=== PATIENT | male | born 1965 | race Caucasian/White ===

== ENCOUNTER 2017-08-18 10:37 | Emergency (ER) | payer OTHER, MEDICARE ==
[~2017-08-18 10:37] MED LIST: ALEVE220 M1 PO; AMBIEN10 MG PO; AMOXICILLIN-CL1 EACH PO; ANTIVERT25 MG PO; AUGMENTIN 500-500 MG PO; CLONIDINE HCL0.1 MG PO; CYCLOBENZAPRINE10 MG PO; DEPO-TESTO200 MG/1 M IM; DIAZEPAM10 MG PO; DIAZEPAM5 MG PO; FLUDROCORTISON0.1 MG PO; FLUTICASONE PRO16 GM NS; GARLIPURE600 MG PO; GEODON60 MG PO; GEODON80 MG NG; GRALISE600 MG PO; HYDROCODON-ACE1 EAC8 PO; IBUPROFEN800 MG PO; KLONOPIN2 MG PO; LYRICA150 MG PO; LYRICA75 MG PO; MELOXICAM15 MG PO; METHYLPHENIDATE20 MG PO; NORCO 10-325 T1 EACH PO; ONDANSETRON ODT8 MG PO; PERCOCET 5-3251 EACH PO; PROCHLORPERAZIN10 MG PO; PROMETHAZINE HC25 M1 PO; PROZAC40 MG PO; PYRIDIUM200 MG PO; SULFAMETHOXAZO1 EAC1 PO; TRANSDERM-SCOP1 EA TD
--- NOTE | 2017-08-18 12:58 | NUR ---
CODE WAS CALLED AND I WENT TO ED TO CHECK ON STATUS. WHILE IN ED, CLOSE FRIEND OF PT RECOGNIZED ME AND CALLED FOR ME. SHE WAS UPSET, AND WITH TEARS SHE REQUESTED I CALL HER BACTERIOLOGIST MEDICAL AND GIVE HIM NOTIFICATION OF PT'S SITUATION. PT TO CT, I CALLED HER BACTERIOLOGIST MEDICAL AND LET HER VISIT WITH HIM ON MY PHONE. STAFF ALSO DETERMINED THAT PT SHOULD BE TRANSFERRED. I GAVE PT'S FRIEND MAL A COPY OF OUR LIFE[employer]IGHT PACK LIST. SHE WILL BE FOLLOWING PT. WE HAD PRAYER TOGETHER, AND WILL BE AVAILABLE NEEDED
--- NOTE | 2017-08-18 13:57 | EKG ---
[facility] [address] [facility] [place], [place] [address] Signed Sinus tachycardia Biatrial enlargement Abnormal ECG No previous ECGs available Confirmed by JJ BUCKNER MD ([id number]) on 08/18/2017 1:57:01 PM Electronically Signed By: JJ BUCKNER MD 08/18/17 1357 PATIENT NAME: KACEY GARCIA Electrocardiogram DATE OF : 63 PHYSICIAN: JJ BUCKNER MD REPORT #: [id number] REPORT IS CONFIDENTIAL AND NOT TO BE RELEASED WITHOUT AUTHORIZATION
== END 2017-08-18 13:22 | disposition short-term general hospital (02) ==
LOC: ED 10:37
DX: S02.19XA Other fracture of base of skull, initial encounter for closed fracture (principal); S06.6X9A Traumatic subarachnoid hemorrhage with loss of consciousness of unspecified duration, initial encounter; S06.5X9A Traumatic subdural hemorrhage with loss of consciousness of unspecified duration, initial encounter; F17.200 Nicotine dependence, unspecified, uncomplicated; Z88.1 Allergy status to other antibiotic agents; Z88.8 Allergy status to other drugs, medicaments and biological substances; Z87.442 Personal history of urinary calculi; Z79.899 Other long term (current) drug therapy; V49.9XXA Car occupant (driver) (passenger) injured in unspecified traffic accident, initial encounter
CPT/HCPCS: 70450; 70496; 71045; 72125; 80053; 85025; 90471; 90715; 93005; 93010; 96361; 96374; 96375; 99285; G0480; J2405; J2550; J2765; J7030; Q9967

== ENCOUNTER 2018-11-22 11:37 | Emergency (ER) | payer MEDICARE, OTHER ==
[~2018-11-22] VITALS: Ht 172.7 cm; Wt 79.4 kg
--- OUTSIDE RECORDS SUMMARY | 2018-11-22 11:40 | XMS ---
PreManage Notification: KACEY GARCIA Security Stick Feeder Events No recent Security Events currently on file CRITERIA MET - [facility] CARE PROVIDERS [place] CARMEN [facility] Current PHONE: Unknown CHANI THEODORE Primary Care Current PHONE: Unknown Chani Theodore MD PHONE: Unknown [facility] Primary Care Current PHONE: Unknown RADHA CARMEN Primary Care 02/06/2013-Current PHONE: Unknown Igor has no Care Guidelines for this patient. E.DBertrand VISIT COUNT (12 MO.) 1 TRIP Basurto TOTAL 1 NOTE: Visits indicate total known visits. ED/UCC VISIT TRACKING (12 MO.) 11/22/2018 11:[address] [facility] [place] TYPE: Emergency COMPLAINT: - ABD PAIN INPATIENT VISIT TRACKING (12 MO.) No inpatient visits to display in this time frame [id number]
[2018-11-22] MEDS ORDERED: XANAX2 MG PO (12:02)
[2018-11-22] MEDS ORDERED: LATUDA60 MG PO (12:04)
[2018-11-22] MEDS ORDERED: GABAPENTIN300 MG PO (12:05)
[2018-11-22] MEDS ORDERED: NEURONTIN300 MG PO (12:05)
[2018-11-22] MEDS ORDERED: FAMOTIDINE20 MG PO (12:06)
[2018-11-22] MEDS ORDERED: SEROQUEL400 MG PO (12:07)
[2018-11-22] MEDS ORDERED: BUSPIRONE HCL15 MG PO (12:07)
[2018-11-22] MEDS ORDERED: CATAPRES0.2 MG PO (12:08)
[2018-11-22] MEDS ORDERED: CARAFATE1 GM PO (12:09)
[2018-11-22] MEDS ORDERED: FLUVOXAMINE MA100 MG PO (12:10)
== END 2018-11-22 15:05 | disposition home or self-care (01) ==
LOC: ED 11:37
DX: K59.00 Constipation, unspecified (principal); F17.200 Nicotine dependence, unspecified, uncomplicated; Z88.8 Allergy status to other drugs, medicaments and biological substances; Z88.1 Allergy status to other antibiotic agents; Z79.899 Other long term (current) drug therapy
CPT/HCPCS: 36415; 51798; 74177; 80053; 81001; 83690; 85025; 99284-25; J2405; J7030; Q9967

== ENCOUNTER 2019-01-17 09:16 | Inpatient (IN) | payer MEDICARE, OTHER ==
[~2019-01-17] VITALS: Ht 172.7 cm; Wt 85.5 kg
--- OUTSIDE RECORDS SUMMARY | ~2019-01-17 | XMS | Clinical Summary ---
Demographics + + + | Address | [address] | | | [place] [address] | + + + | Home Phone | | + + + | Preferred Language | Unknown | + + + | Marital Status | Single | + + + | Faith Affiliation | Unknown | + + + | Race | White | + + + | Ethnic Group | Not or | + + + Author + + + | Author | [facility] | + + + | Organization | [facility] | + + + | Address | Unknown | + + + | Phone | Unavailable | + + + Support + + +---------+ + | Name | Relationship | Address | Phone | + + +---------+ + | Marianne Cabrera | ECON | Unknown | | + + +---------+ + Care Team Providers + +------+ + | Care Bowling Ball Grader And Marker Name | Role | Phone | + +------+ + | Rafita Manning DO | PCP | | + +------+ + Source Comments TA[facility] is fully live on both [facility] and [facility] Allergies + + + + + + | Active Allergy | Reactions | Severity | Noted | Comments | | | | | Date | | + + + + + + | Gabapentin | Unknown | | 09/20/20 | | | | | | 16 | | + + + + + + | Azithromycin | Unknown | | 09/20/20 | | | | | | 16 | | + + + + + + Medications + + + +---------+------+------+-------+ | Medication | Sig | Dispensed | Refills | Star | End | Statu | | | | | | t | Date | s | | | | | | Date | | | + + + +---------+------+------+-------+ | zolpidem 10 mg | Take 10 mg by mouth | | 0 | | | Activ | | oral tablet | once daily at | | | | | e | | | bedtime as needed | | | | | | | | for sleep. | | | | | | + + + +---------+------+------+-------+ | clonazePAM 2 mg | Take 2 mg by mouth | | 0 | | | Activ | | oral tablet | three times daily. | | | | | e | + + + +---------+------+------+-------+ | cloNIDine HCl 0.2 | Take 0.2 mg by mouth | | 0 | | | Activ | | mg oral tablet | two times daily. | | | | | e | + + + +---------+------+------+-------+ | naproxen sodium | Take 220 mg by mouth | | 0 | | | Activ | | (ALEVE) 220 mg oral | as needed. | | | | | e | | capsule | | | | | | | + + + +---------+------+------+-------+ | ziprasidone 60 mg | Take 60 mg by mouth | | 0 | | | Activ | | oral capsule | two times daily with | | | | | e | | | meals. | | | | | | + + + +---------+------+------+-------+ | methylphenidate 20 | Take 20 mg by mouth | | 0 | | | Activ | | mg oral tablet | two times daily. | | | | | e | + + + +---------+------+------+-------+ | FLUoxetine 40 mg | Take 40 mg by mouth | | 0 | | | Activ | | oral capsule | once daily. | | | | | e | + + + +---------+------+------+-------+ | (No Medication | | | 0 | | | Activ | | Selected) | | | | | | e | + + + +---------+------+------+-------+ | testosterone | Inject into the | | 0 | | | Activ | | cypionate | muscle (IM) every | | | | | e | | (DEPO-TESTOSTERONE) | fourteen days. | | | | | | | 200 mg/mL | | | | | | | | intramuscular oil | | | | | | | + + + +---------+------+------+-------+ | testosterone | Inject into the | | 0 | | | Activ | | cypionate 200 mg/mL | muscle (IM) every | | | | | e | | intramuscular oil | fourteen days. | | | | | | + + + +---------+------+------+-------+ | testosterone | Inject 200 mg into | | 0 | | | Activ | | cypionate 200 mg/mL | the muscle (IM) | | | | | e | | intramuscular kit | every seven days. | | | | | | + + + +---------+------+------+-------+ | promethazine 25 mg | Take 25 mg by mouth | | 0 | | | Activ | | oral tablet | as needed for | | | | | e | | | nausea/vomiting. | | | | | | + + + +---------+------+------+-------+ | busPIRone 30 mg | Take 30 mg by mouth | | 0 | | | Activ | | oral tablet | two times daily. | | | | | e | + + + +---------+------+------+-------+ Active Problems Not on file Family History + + +------+ + | Medical History | Relation | Name | Comments | + + +------+ + | Additional Family | Brother | | migraine | | History | | | | + + +------+ + | Macular degeneration | Father | | | + + +------+ + | Additional Family | Mother | | migraine | | History | | | | + + +------+ + + +------+--------+ + | Relation | Name | Status | Comments | + +------+--------+ + | Brother | | | | + +------+--------+ + | Father | | | | + +------+--------+ + | Mother | | | | + +------+--------+ + Social History + +-------+ +--------+------+ | Tobacco Use | Types | Packs/Day | Years | Date | | | | | Used | | + +-------+ +--------+------+ | Current Some Day | | | | | | Smoker | | | | | + +-------+ +--------+------+ + +---+---+---+ | Smokeless Tobacco: | | | | | Never Used | | | | + +---+---+---+ + + | Comments: trying to quit, using e cigs, and nicotine gum and patch | + + + + +---------+ + | Alcohol Use | Drinks/Week | oz/Week | Comments | + + +---------+ + | No | 0 Standard drinks | 0.0 | | | | or equivalent | | | + + +---------+ + + + + | Sex Assigned at | Date Recorded | | | | + + + | Female | 08/12/2018 8:25 AM PDT | + + + + + + + | Job Start Date | Occupation | Industry | + + + + | Not on file | Not on file | Not on file | + + + + + + + + | Travel History | Travel Start | Travel End | + + + + + + | No recent travel history available. | + + Last Filed Vital Signs Not on file Plan of Treatment + + + + + | Health Maintenance | Due Date | Last Done | Comments | + + + + + | Pneumococcal | | | | | vaccination (1 of 1 | 1 | | | | - PPSV23) | | | | + + + + + | Influenza (Flu) | | | | | vaccination (#1) | 9 | | | + + + + + Results Not on filefrom Last 3 Months Insurance + +--------+ +--------+-------+---------+--------+ | Payer | Benefi | Subscriber | Effect | Phone | Address | Type | | | t Plan | ID | agnes | | | | | | / | | Dates | | | | | | Group | | | | | | + +--------+ +--------+-------+---------+--------+ | [employer] | [place] | xxxxxxxx | | | | Medica | | | [place] | | 015-Pr | | | id | | | [place] | | esent | | | | + +--------+ +--------+-------+---------+--------+ + +--------+ +--------+ + + | Guarantor Name | Accoun | Relation to | Date | Phone | Billing Address | | | t Type | Patient | of | | | | | | | | | | + +--------+ +--------+ + + | Sajan Bray | Person | Self | [birth year] | [address] | | | al/Fam | | 1966 | [phone] | [address] [place] | | | greg | | | 0 (Home) | [phone] | + +--------+ +--------+ + +"
--- OUTSIDE RECORDS SUMMARY | ~2019-01-17 | XMS | Encounter Summary ---
Demographics + + + | Address | [address] | | | [place] [address] | + + + | Home Phone | | + + + | Preferred Language | Unknown | + + + | Marital Status | Single | + + + | Christianity Affiliation | Unknown | + + + | Race | White | + + + | Ethnic Group | Not or | + + + Author + + + | Author | [facility] | + + + | Organization | [facility] | + + + | Address | Unknown | + + + | Phone | Unavailable | + + + Support + + +---------+ + | Name | Relationship | Address | Phone | + + +---------+ + | Marianne Cabrera | ECON | Unknown | | + + +---------+ + Care Team Providers + +------+ + | Care Inventory Taker Name | Role | Phone | + +------+ + | Rafita Manning DO | PCP | | + +------+ + Reason for Visit + + + | Reason | Comments | + + + | Lab Results | | + + + Encounter Details +--------+ + + + + | Date | Type | Department | Care Team | Description | +--------+ + + + + | 12/30/ | Telephone | [facility] | Anthony Peters, | Lab Results | | 2015 | | [place] | MD [address] | | | | | Neuro-Ophthalmology | [place], [place] | | | | | at [facility] [address] | [address] | | | | | [address] Mailcode: CH3G | [phone] | | | | | [facility] | | | | | | jonathan Rg, | | | | | | [facility] | | | | | | [place], [place] | | | | | | [address] | | | | | | [phone] | | | +--------+ + + + + Social History + +-------+ +--------+------+ | [...] | + + + | Female | | + + + + + [...] recent travel history available. | + + documented as of this encounter Plan of Treatment Not on filedocumented as of this encounter Visit Diagnoses Not on filedocumented in this encounter"
--- OUTSIDE RECORDS SUMMARY | ~2019-01-17 | XMS | Encounter Summary ---
Demographics + + + | Address | [address] | | | [place] [address] | + + + | Home Phone | | + + + | Preferred Language | Unknown | + + + | Marital Status | Single | + + + | Amish Affiliation | [phone] | + + + | Race | Unknown | + + + | Ethnic Group | Unknown | + + + Author + + + | Author | [facility] | | | and [place] | + + + | Organization | [facility] | | | and [place] | + + + | Address | Unknown | + + + | Phone | Unavailable | + + + Support + + +---------+ + | Name | Relationship | Address | Phone | + + +---------+ + | Marianne Cabrera | ECON | Unknown | | + + +---------+ + Care Team Providers + +------+ + | Care Clinical Material Handler Name | Role | Phone | + +------+ + | Katharine Hernandez | PCP | | | PA | | | + +------+ + Reason for Visit + + + | Reason | Comments | + + + | Patient Concerns | | + + + Encounter Details +--------+ + + + + | Date | Type | Department | Care Team | Description | +--------+ + + + + | 11/07/ | Telephone | [facility] | Lazaro Haynes MD | Patient Concerns | | 2019 | | [facility] | [address] | | | | | CLINIC [address] | [place] | | | | | [address] [place], | [address] | | | | | [place] [address] | | | | | | [phone] | | | +--------+ + + + + Social History + +-------+ +--------+------+ | Tobacco Use | Types | Packs/Day | Years | Date | | | | | Used | | + +-------+ +--------+------+ | Current Every Day | | 0.5 | | | | Smoker | | | | | + +-------+ +--------+------+ + +---+---+---+ | Smokeless Tobacco: | | | | | Former User | | | | + +---+---+---+ + + +---------+ + | Alcohol Use | Drinks/We | oz/Week | Comments | | | ek | | | + + +---------+ + | No | | | | + + +---------+ + + + + | Sex Assigned at | Date Recorded | | | | + + + | Not on file | | + + + + + [...] as of this encounter Plan of Treatment +--------+---------+ + + + | Date | Type | Specialty | Care Team | Description | +--------+---------+ + + + | 03/22/ | Office | Neurology | Geovanna, | | | 2019 | Visit | | [address] | | | [address] [place] [place], | | | | | | [place] [address] | | | | | | [phone] | | | | | | | | +--------+---------+ + + + | 05/29/ | Office | Neurology | Lazaro Haynes MD | | | 2020 | Visit | | [address] | | | | | | [place] | | | | | | [address] | | | | | | | | +--------+---------+ + + + documented as of this encounter Visit Diagnoses Not on filedocumented in this encounter"
--- OUTSIDE RECORDS SUMMARY | ~2019-01-17 | XMS | Clinical Summary ---
Demographics + + + | Address | [address] | | | [place] [address] | + + + | Home Phone | | + + + | Preferred Language | Unknown | + + + | Marital Status | Single | + + + | Methodist Affiliation | 1013 | + + + | Race | Unknown | + + + | Ethnic Group | Unknown | + + + Author + + + | Author | [facility] (Historical as of | | | 11-18-18) | + + + | Organization | [facility] (Historical as of | | | 11-18-18) | + + + | Address | Unknown | + + + | Phone | Unavailable | + + + Support + + +---------+ + | Name | Relationship | Address | Phone | + + +---------+ + | Marianne Cabrera | ECON | Unknown | | + + +---------+ + Care Team Providers + +------+ + | Care Camera Maker Name | Role | Phone | + +------+ + | Mohit Manning DO | PP | | + +------+ + Allergies + + + + + + | Active Allergy | Reactions | Severity | Noted | Comments | | | | | Date | | + + + + + + | Gabapentin | Other (See Comments) | Medium | 02/11/20 | | | | | | 16 | | + + + + + + | Lamotrigine | Rash | Medium | 12/12/19 | | | | | | 15 | | + + + + + + | Azithromycin | Rash | Medium | 12/12/19 | | | | | | 15 | | + + + + + + Current Medications + + +---------+---------+------+------+-------+ | Prescription | Sig. | Disp. | Refills | Star | End | Statu | | | | | | t | Date | s | | | | | | Date | | | + + +---------+---------+------+------+-------+ | cyclobenzaprine | Take 10 mg by mouth | | | | | Activ | | (FLEXERIL) 10 MG | 3 (three) times | | | | | e | | tablet | daily as needed for | | | | | | | | Muscle spasms. | | | | | | + + +---------+---------+------+------+-------+ | busPIRone (BUSPAR) | Take 1 tablet by | 90 | 0 | 06/1 | | Activ | | 10 MG | mouth 3 (three) | tablet | | 5/20 | | e | | tabletIndications: | times daily. | | | 18 | | | | Traumatic | | | | | | | | subarachnoid | | | | | | | | hemorrhage with loss | | | | | | | | of consciousness of | | | | | | | | unspecified | | | | | | | | duration, initial | | | | | | | | encounter (HCC) | | | | | | | + + +---------+---------+------+------+-------+ | clonazePAM | Take 1 tablet by | 60 | 0 | 06/1 | | Activ | | (KLONOPIN) 1 MG | mouth 2 (two) times | tablet | | 5/20 | | e | | tabletIndications: | daily. | | | 18 | | | | Traumatic | | | | | | | | subarachnoid | | | | | | | | hemorrhage with loss | | | | | | | | of consciousness of | | | | | | | | unspecified | | | | | | | | duration, initial | | | | | | | | encounter (HCC) | | | | | | | + + +---------+---------+------+------+-------+ | FLUoxetine | Take 3 capsules by | 90 | 0 | 06/1 | | Activ | | (PROZAC) 20 MG | mouth every morning. | capsule | | 5/20 | | e | | capsuleIndications: | | | | 18 | | | | Traumatic | | | | | | | | subarachnoid | | | | | | | | hemorrhage with loss | | | | | | | | of consciousness of | | | | | | | | unspecified | | | | | | | | duration, initial | | | | | | | | encounter ([facility]) | | | | | | | + + +---------+---------+------+------+-------+ | propranolol | Take 1 tablet by | 60 | 0 | 06/1 | | Activ | | (INDERAL) 10 MG | mouth 2 (two) times | tablet | | 5/20 | | e | | tabletIndications: | daily. | | | 18 | | | | Traumatic | | | | | | | | subarachnoid | | | | | | | | hemorrhage with loss | | | | | | | | of consciousness of | | | | | | | | unspecified | | | | | | | | duration, initial | | | | | | | | encounter ([facility]) | | | | | | | + + +---------+---------+------+------+-------+ | tamsulosin | Take 1 capsule by | 30 | 0 | 06/1 | | Activ | | (FLOMAX) 0.4 MG | mouth After dinner. | capsule | | 5/20 | | e | | capsule | | | | 18 | | | + + +---------+---------+------+------+-------+ | QUEtiapine | Take 1 tablet by | 30 | 0 | 09/02 | | Activ | | (SEROQUEL) 400 MG | mouth nightly for 30 | tablet | | 5/20 | | e | | tabletIndications: | days. | | | 18 | | | | Traumatic | | | | | | | | subarachnoid | | | | | | | | hemorrhage with loss | | | | | | | | of consciousness of | | | | | | | | unspecified | | | | | | | | duration, initial | | | | | | | | encounter (HCC) | | | | | | | + + +---------+---------+------+------+-------+ | oxyCODONE | Take 1 tablet by | 20 | 0 | 09/02 | | Activ | | (ROXICODONE) 5 MG | mouth every 8 | tablet | | 5/20 | | e | | immediate release | (eight) hours as | | | 18 | | | | tabletIndications: | needed for Pain | | | | | | | Traumatic | (-01/11). | | | | | | | subarachnoid | | | | | | | | hemorrhage with loss | | | | | | | | of consciousness of | | | | | | | | unspecified | | | | | | | | duration, initial | | | | | | | | encounter (HCC) | | | | | | | + + +---------+---------+------+------+-------+ Active Problems + + + | Problem | Noted Date | + + + | Severe protein-calorie malnutrition (HCC) | 09/13/2017 | + + + | Constipation | 09/05/2017 | + + + | Traumatic subarachnoid hemorrhage with loss of consciousness of | 08/18/2017 | | unspecified duration, initial encounter (HCC) | | + + + | Closed head injury | 08/18/2017 | + + + | Fatigue | 12/26/2014 | + + + | Essential hypertension | 12/14/2014 | + + + | Nausea | 12/12/2014 | + + + | Sciatica of left side | 12/12/2014 | + + + | Nephrolithiasis | 04/04/2013 | + + + | Bipolar disorder | | + + + Resolved Problems + + + + | Problem | Noted | Resolved | | | Date | Date | + + + + | Urinary tract infection associated with catheterization of | 08/29/19 | | | urinary tract (HCC) | 18 | 8 | + + + + | Loss of taste | 04/10/19 | | | | 16 | 6 | + + + + | BIRD (acute kidney injury) | 12/15/19 | | | | 15 | 6 | + + + + | Metabolic acidosis | 12/13/19 | | | | 15 | 8 | + + + + | Lightheaded | 12/13/19 | | | | 15 | 6 | + + + + | Headache(784.0) | 12/13/19 | | | | 15 | 7 | + + + + | Current smoker | 12/13/19 | | | | 15 | 6 | + + + + | Loss of weight | 12/13/19 | | | | 15 | 6 | + + + + Family History + + +------+ + | Medical History | Relation | Name | Comments | + + +------+ + | Stroke | Father | | AT 70 | + + +------+ + | Heart disease | Mother | | CABG AT 60 | + + +------+ + | Kidney disease | Neg Hx | | | + + +------+ + + +------+--------+ + | Relation | Name | Status | Comments | + +------+--------+ + | Father | | Alive | [place] in [place] | + +------+--------+ + | Mother | | Alive | in [place] | + +------+--------+ + Social History + + + +--------+------+ | Tobacco Use | Types | Packs/Day | Years | Date | | | | | Used | | + + + +--------+------+ | Current Every Day | Cigarettes | 1 | 10 | | | Smoker | | | | | + + + +--------+------+ + +------+---+---+ | Smokeless Tobacco: | Chew | | | | Current User | | | | + +------+---+---+ + + | Tobacco Cessation: Counseling Given: Yes | + + + + +---------+ + | Alcohol Use | Drinks/We | oz/Week | Comments | | | ek | | | + + +---------+ + | No | 0 | 0.0 | | | | Standard | | | | | drinks or | | | | | | | | | | equivalen | | | | | t | | | + + +---------+ + + + + | Sex Assigned at | Date Recorded | | | | + + + | Not on file | | + + + Last Filed Vital Signs + + + + | Vital Sign | Reading | Time Taken | + + + + | Blood Pressure | 116/69 | 09/16/2017 11:24 AM PDT | + + + + | Pulse | 109 | 09/16/2017 11:24 AM PDT | + + + + | Temperature | 36.9 C (98.4 F) | 09/16/2017 11:24 AM PDT | + + + + | Respiratory Rate | 16 | 09/16/2017 11:24 AM PDT | + + + + | Oxygen Saturation | 97% | 09/16/2017 11:24 AM PDT | + + + + | Inhaled Oxygen | - | - | | Concentration | | | + + + + | Weight | 52.4 kg (115 lb 9.6 | 09/06/2017 3:01 AM PDT | | | oz) | | + + + + | Height | 170.2 cm (5' 7") | 08/18/2017 2:08 PM PDT | + + + + | Body Mass Index | 18.11 | 09/06/2017 3:01 AM PDT | + + + + Plan of Treatment + + + + + | Health Maintenance | Due Date | Last Done | Comments | + + + + + | Vaccine: | | | | | Dtap/Tdap/Td (1 - | 4 | | | | Tdap) | | | | + + + + + | Vaccine: | | | | | Pneumococcal 19-64 | 4 | | | | (PPSV23 only) Medium | | | | | Risk (1 of 1 - | | | | | PPSV23) | | | | + + + + + | Colon Cancer | | | | | Screening | 5 | | | | (Colonoscopy) | | | | + + + + + | Vaccine: Zoster (1 | | | | | of 2) | 5 | | | + + + + + | Vaccine: Influenza | | | | | (#1) | 9 | | | + + + + + Results Not on filefrom Last 3 Months Insurance + +--------+ +--------+-------+ + | Payer | Benefi | Subscriber | Type | Phone | Address | | | t Plan | ID | | | | | | / | | | | | | | Group | | | | | + +--------+ +--------+-------+ + | [place] - | [id number] | Medica | | | | | MODA | | re | | | | | | | | | | | | | | | | | | | | | | | | | | | | | | | | | | | | | | | | [place] - | | | | | | | MODA | | | | | + +--------+ +--------+-------+ + | MEDICAID | [place] | [id number] | | | [address] | | | [address] | | | | [place], [place] | | | [place] | | | | [address] | | | DRAW PRESS OPERATOR | | | | | + +--------+ +--------+-------+ + | [place] - [employer]MIERCARE | [place]-FAM | | Medica | | | | FAMILY | GREG | | re | | | | | CARE | | | | | + +--------+ +--------+-------+ + + +--------+ +--------+ + + | Guarantor Name | Accoun | Relation to | Date | Phone | Billing Address | | | t Type | Patient | of | | | | | | | | | | + +--------+ +--------+ + + | SAJAN GARCIA | Person | Self [birth year] | Home: | [address] | | | al/Fam | | 1966 | [phone] | [address] [place], | | | greg | | | [address] | [place] [address] | + +--------+ +--------+ + + | SAJAN GARCIA | Worker | Self | [birth year] | Home: | [address] | | | s Comp | | 1966 | [phone] | [address] [place], | | | | | | [address] | [place] [address] | + +--------+ +--------+ + +
--- OUTSIDE RECORDS SUMMARY | ~2019-01-17 | XMS | Encounter Summary ---
Demographics + + + | Address | [address] | | | [place] [address] | + + + | Home Phone | | + + + | Preferred Language | Unknown | + + + | Marital Status | Single | + + + | Congregation Affiliation | 1013 | + + + | Race | Unknown | + + + | Ethnic Group | Unknown | + + + Author + + + | Author | [facility] | | | and [place] | + + + | Organization | [facility] | | | [...] Team Providers + +------+ + | Care Bar Pilot Name | Role | Phone | + +------+ + | Katharine Hernandez | PCP | | | PA | | | + +------+ + Encounter Details +--------+ + + + + | Date | Type | Department | Care Team | Description | +--------+ + + + + | 11/06/ | Orders Only | [facility] | Provider, | | | 2018 | | [facility] | Historical, MD [address] | | | | | [address] | [place] [address]. | | | | | [place], [place] | [place] [address] | | | | | [address] | | | | | | [phone] | | | +--------+ + + + [...] | Neurology | Geovanna, | | | 2018 | Visit | | [address] MAR[address] | | | | | [address] [place], | | | | | | [place] [address] | | | | | | [phone] | | | | | | | | +--------+---------+ + + + | 05/29/ | Office | Neurology | Lazaro Haynes MD | | | 2019 | Visit | | [address] | | | | | | [place] | | | | | | [phone] | | | | | | | | +--------+---------+ + + + documented as of this encounter Visit Diagnoses Not on filedocumented in this encounter"
--- OUTSIDE RECORDS SUMMARY | ~2019-01-17 | XMS | Clinical Summary ---
Demographics + + + | Address | [address] | | | [place] [address] | + + + | Home Phone | | + + + | Preferred Language | Unknown | + + + | Marital Status | Single | + + + | Islam Affiliation | 1013 | + + + | Race | Unknown | + + + | Ethnic Group | Unknown | + + + Author + + + | Author | [facility] [employer] (Historical as of | | | 11-18-18) | + + + | Organization | [facility] [employer] (Historical as of | | | 11-18-18) [...] Team Providers + +------+ + | Care Quill Cleaning Machine Operator Name | Role | Phone | + [...] | | | | | | encounter ([facility]) | | | | | | | [...] | | | | | | encounter ([facility]) | | | | | | | [...] | Mother | | Alive | in [place] | + +------+--------+ + Social History + [...] [place] - MODA | [place] - | [id number] | Medica | | | | | [...] +--------+-------+ + | MEDICAID | [employer] | [id number] | | | [address] | | | N | | | | [place], [place] | | | [place] | | | | [address] | | | DIRECTORY COMPILER | | | | | + +--------+ [...] greg | | | [address] | [place] [address] | + +--------+ +--------+ + + | SAJAN GARCIA | Worker | Self | [birth year] | Home: | [address] | | | s Comp | | 1966 | [phone] | [address] [place], | | | | | | [address] | [place] [address] | + +--------+ +--------+ + +
--- OUTSIDE RECORDS SUMMARY | ~2019-01-17 | XMS | Encounter Summary ---
Demographics + + + | Address | [address] | | | [place] [address] | + + + | Home Phone | | + + + | Preferred Language | Unknown | + + + | Marital Status | Single | + + + | Evangelical Affiliation | Unknown | + + + | Race | White | + + + | Ethnic Group | Not or | + + + Author + + + | Author | [facility] | + + + | Organization | [facility] | + + + | Address | Unknown | + + + | Phone | Unavailable | + + + Support + + +---------+ + | Name | Relationship | Address | Phone | + + +---------+ + | Marianne Cabrera | ECON | Unknown | | + + +---------+ + Care Team Providers + +------+ + | Care Show Girl Name | Role | Phone | + +------+ + | Rafita Manning DO | PCP | | + +------+ + Encounter Details +--------+------+ + + + | Date | Type | Department | Care Team | Description | +--------+------+ + + + | 12/21/ | Lab | Laboratory at [facility] | | [facility] | | 2016 | | [address] | | | | | | [place], [place] | | | | | | [address] | | | | | | [phone] | | | +--------+------+ + + + Social History + +-------+ +--------+------+ | Tobacco Use | Types | Packs/Day | Years | Date | | | | | Used | | + +-------+ +--------+------+ | Current Some Day | | | | | | Smoker | | | | | + +-------+ +--------+------+ + + | Comments: trying to quit, using e cigs, and nicotine gum and patch | + + + + +---------+ + | Alcohol Use | Drinks/Week | oz/Week | Comments | + + +---------+ + | Not Asked | 0 Standard drinks | 0.0 | [...] Not on filedocumented as of this encounter Procedures + +--------+ + + + | Procedure Name | Priori | Date/Time | Associated Diagnosis | Comments | | | ty | | | | + +--------+ + + + | MARCI BY YANNI | Routin | 12/22/2015 | [facility] | Results for this | | W/REFLEX TO IFA | e | 4:47 PM | | procedure are in the | | PATTERN & AB ID WHEN | | PDT | | results section. | | INDICATED | | | | | + +--------+ + + + | ACETYLCHOLINE | Routin | 12/22/2015 | [facility] | Results for this | | RECEPTOR ABS REFLEX | e | 4:47 PM | | procedure are in the | | PANEL | | PDT | | results section. | + +--------+ + + + | THYROID STIMULATING | Routin | 12/22/2015 | [facility] | Results for this | | IMMUNOGLOBULIN, | e | 4:47 PM | | procedure are in the | | SERUM | | PDT | | results section. | + +--------+ + + + | VITAMIN B1, WHOLE | Routin | 12/22/2015 | [facility] | Results for this | | BLOOD | e | 4:47 PM | | procedure are in the | | | | PDT | | results section. | + +--------+ + + + | THYROID PEROXIDASE | Routin | 12/22/2015 | [facility] | Results for this | | AB, SERUM | e | 4:47 PM | | procedure are in the | | | | PDT | | results section. | + +--------+ + + + | VITAMIN B6, PLASMA | Routin | 12/22/2015 | [facility] | Results for this | | | e | 4:47 PM | | procedure are in the | | | | PDT | | results section. | + +--------+ + + + | ANGIOTENSIN CONVERT | Routin | 12/22/2015 | [facility] | Results for this | | ENZYME, SERUM | e | 4:47 PM | | procedure are in the | | | | PDT | | results section. | + +--------+ + + + | VITAMIN E, SERUM | Routin | 12/22/2015 | [facility] | Results for this | | | e | 4:47 PM | | procedure are in the | | | | PDT | | results section. | + +--------+ + + + | TSH RECEPTOR AB, | Routin | 12/22/2015 | [facility] | Results for this | | SERUM | e | 4:47 PM | | procedure are in the | | | | PDT | | results section. | + +--------+ + + + | ANTI NEUTROPHIL | Routin | 12/22/2015 | [facility] | Results for this | | CYTOPLASMIC AB SCN, | e | 4:47 PM | | procedure are in the | | SERUM | | PDT | | results section. | + +--------+ + + + | VITAMIN B-12 | Routin | 12/22/2015 | [facility] | Results for this | | | e | 4:47 PM | | procedure are in the | | | | PDT | | results section. | + +--------+ + + + documented in this encounter Results TSH RECEPTOR AB, SERUM (12/22/2015 4:47 PM PDT) + + + + + + | Component | Value | Ref Range | Performed | Pathologist | | | | | At | Signature | + + + + + + | TSH | <0.90Comment: | <=1.75 IU/L | [facility] | | | RECEPTOR AB | INTERPRETIVE | | REG UNIV | | | | INFORMATION: Thyroid | | PTH - INTFC | | | | Stimulating Hormone | | | | | | Receptor Ab Autoimmune | | | | | | thyroid disease may be | | | | | | confirmed when TRAb | | | | | | testing is | | | | | | positive.Performed by | | | | | | [facility] | | | | | | [address], [facility],[place] | | | | | | [address] | | | | | | [phone].QPDlab. | | | | | | [facility], Wayne Nayak, | | | | | | Mariana PEDROZA. Director | | | | + + + + + + + + | Specimen | + + | Blood - Blood | + + + + + + + | Performing | Address | City/State/Zipcode | Phone Number | | Organization | | | | + + + + + | [facility] | [address] | [place], [place] | | | UNIV PTH - INTFC | | [address] | | + + + + + THYROID STIMULATING IMMUNOGLOBULIN, SERUM (12/22/2015 4:47 PM PDT) + + + + + + | Component | Value | Ref Range | Performed | Pathologist | | | | | At | Signature | + + + + + + | THYROID | 95Comment: INTERPRETIVE | <=122 % | [facility] | | | STIMULATING | INFORMATION: Thyroid | | REG UNIV | | | | Stimulating | | PTH - INTFC | | | IMMUNOGLOBU | Immunoglobulin | | | | | ELLA | Negative - 122 percent | | | | | | basal activity or less | | | | | | Positive - 123 | | | | | | percent basal activity | | | | | | or greater Positive | | | | | | results (123 percent or | | | | | | greater) are consistent | | | | | | with Graves disease but | | | | | | do not always correlate | | | | | | with the presence and | | | | | | severity of | | | | | | hyperthyroidism. | | | | | | Antibodies to the | | | | | | Thyroid Stimulating | | | | | | Hormone Receptor (TSHR) | | | | | | may be stimulating, | | | | | | blocking or neutral. | | | | | | Stimulating antibodies | | | | | | mimic the action of TSH | | | | | | and may cause | | | | | | hyperthyroidism (Graves | | | | | | disease). This test | | | | | | determines the net | | | | | | effect of all TSHR | | | | | | antibody types present | | | | | | in the serum specimen. | | | | | | Test developed and | | | | | | characteristics | | | | | | determined by [facility] | | | | | | Laboratories. See | | | | | | Compliance Statement B: | | | | | | FDTEK/CSPerformed | | | | | | by [facility] | | | | | | [address], [facility],[place] | | | | | | [address] | | | | | | [phone].[facility]. | | | | | | [facility], [place], | | | | | | , Lab. Director | | | | + + + + + + + + | Specimen | + + | Blood - Blood | + + + + + + + | Performing | Address | City/State/Zipcode | Phone Number | | Organization | | | | + + + + + | [facility] | [address] [facility] | [place], [place] | | | UNIV PTH - INTFC | | [address] | | + + + + + THYROID PEROXIDASE AB, SERUM (12/22/2015 4:47 PM PDT) + + + + + + | Component | Value | Ref Range | Performed | Pathologist | | | | | At | Signature | + + + + + + | THYROID | 0.3Comment: Performed by | 0.0 - 9.0 IU/mL | [facility] | | | PEROXIDASE | [facility],[address] | | REG UNIV | | | AB | [address], [facility],[place] | | PTH - INTFC | | | | [address] | | | | | | [phone].aruplab. | | | | | | Wayne lovelace, | | | | | | , Lab. Director | | | | + + + + + + + + | Specimen | + + | Blood - Blood | + + + + + + + | Performing | Address | City/State/Zipcode | Phone Number | | Organization | | | | + + + + + | [facility] | [address] | [place], [place] | | | UNIV PTH - INTFC | | [address] | | + + + + + ANGIOTENSIN CONVERT ENZYME, SERUM (12/22/2015 4:47 PM PDT) + + + + + + | Component | Value | Ref Range | Performed | Pathologist | | | | | At | Signature | + + + + + + | ANGIOTENSIN | 30Comment: INTERPRETIVE | 9 - 67 U/L | [facility] | | | CONVERTING | INFORMATION: Angiotensin | | REG UNIV | | | ENZYME, | Converting EnzymeFor | | PTH - INTFC | | | SERUM | related information, see | | | | | | | | | | | | [email or web address] | | | | | | 001Performed by [facility] | | | | | | [facility],[address] | | | | | | [place], [place] [address] | | | | | | [phone].QPDlab. | | | | | | [facility], | | | | | | , Lab. Director | | | | + + + + + + + + | Specimen | + + | Blood - Blood | + + + + + + + | Performing | Address | City/State/Zipcode | Phone Number | | Organization | | | | + + + + + | [facility] | [address] | [place], [place] | | | UNIV PTH - INTFC | | [address] | | + + + + + ANTI NEUTROPHIL CYTOPLASMIC AB SCN, SERUM (12/22/2015 4:47 PM PDT) + + + + + + | Component | Value | Ref Range | Performed | Pathologist | | | | | At | Signature | + + + + + + | ANCA | <1:20Comment: The ANCA | <1:20 | [facility] | | | -NEUTROPHIL | IFA is <1:20; therefore, | | REG UNIV | | | | no further testing will | | PTH - INTFC | | | CYTOPLASMIC | be performed. ANCA IFA | | | | | IGG, SERUM | is < 1:20. No further | | | | | | reflex testing will be | | | | | | performed.INTERPRETIVE | | | | | | INFORMATION: | | | | | | Anti-Neutrophil Cyto Ab, | | | | | | IgG Neutrophil | | | | | | Cytoplasmic Antibodies | | | | | | (C-ANCA = granular | | | | | | cytoplasmic staining, | | | | | | P-ANCA = perinuclear | | | | | | staining) are found in | | | | | | the serum of over 90 | | | | | | percent of patients with | | | | | | certain necrotizing | | | | | | systemic vasculitides, | | | | | | and usually in less than | | | | | | 5 percent of patients | | | | | | with collagen vascular | | | | | | disease or | | | | | | arthritis.Performed by | | | | | | [facility] | | | | | | [address] [facility], [facility],[place] | | | | | | [address] | | | | | | [phone].[facility]. | | | | | | Wayne lovelace, | | | | | | , Lab. Director | | | | + + + + + + + + | Specimen | + + | Blood - Blood | + + + + + + + | Performing | Address | City/State/Zipcode | Phone Number | | Organization | | | | + + + + + | [facility] | [address] | [place], [place] | | | UNIV PTH - INTFC | | [address] | | + + + + + MARCI BY YANNI W/REFLEX TO IFA PATTERN & AB ID WHEN INDICATED (12/22/2015 4:47 PM PDT) + + + + + + | Component | Value | Ref Range | Performed | Pathologist | | | | | At | Signature | + + + + + + | ANTI-NUCLEA | None DetectedComment: No | None Detected | [facility] | | | R AB(MARCI), | antibodies to | | REG UNIV | | | IGG BY | Anti-Nuclear Antibodies | | PTH - INTFC | | | YANNI | (MARCI) detected. No | | | | | | further testing will be | | | | | | performed.INTERPRETIVE | | | | | | INFORMATION: | | | | | | Anti-Nuclear Antibodies | | | | | | (MARCI), IgG by YANNI MARCI | | | | | | specimens are screened | | | | | | using enzyme-linked | | | | | | immunosorbent assay | | | | | | (YANNI) methodology. All | | | | | | YANNI results reported | | | | | | as Detected are further | | | | | | tested by indirect | | | | | | fluorescent assay (IFA) | | | | | | using HEp-2 substrate | | | | | | with an IgG-specific | | | | | | conjugate. The MARCI YANNI | | | | | | screen is designed to | | | | | | detect antibodies | | | | | | against dsDNA, histone, | | | | | | SS-A (Ro), SS-B (La), | | | | | | Davis, snRNP/Sm, Scl-70, | | | | | | Opal-1, centromere, and | | | | | | an extract of lysed | | | | | | HEp-2 cells. MARCI YANNI | | | | | | assays have been | | | | | | reported to have lower | | | | | | sensitivities for | | | | | | antibodies associated | | | | | | with nucleolar and | | | | | | speckled MARCI-IFA | | | | | | patterns.Performed by | | | | | | [facility],[address] | | | | | | [address], [facility],[place] | | | | | | [address] | | | | | | [phone].QPDlab. | | | | | | Wayne lovelace, | | | | | | , Lab. Director | | | | + + + + + + + + | Specimen | + + | Blood - Blood | + + + + + + + | Performing | Address | City/State/Zipcode | Phone Number | | Organization | | | | + + + + + | [facility] | [address] | [place], [place] | | | UNIV PTH - INTFC | | [address] | | + + + + + ACETYLCHOLINE RECEPTOR ABS REFLEX PANEL (12/22/2015 4:47 PM PDT) + + + + + + | Component | Value | Ref Range | Performed | Pathologist | | | | | At | Signature | + + + + + + | ACETYLCHOLI | 0.0Comment: INTERPRETIVE | 0.0 - 0.4 | [facility] | | | NE RECEPTOR | INFORMATION: | nmol/L | REG UNIV | | | BINDING AB | Acetylcholine Binding Ab | | PTH - INTFC | | | | Negative ....... 0.0 | | | | | | - 0.4 nmol/L Positive | | | | | | ....... 0.5 nmol/L or | | | | | | greater Approximately | | | | | | 85-90 percent of | | | | | | patients with myasthenia | | | | | | gravis (MG) express | | | | | | antibodies to the | | | | | | acetylcholine receptor | | | | | | (AChR), which can be | | | | | | divided into binding, | | | | | | blocking, and modulating | | | | | | antibodies. Binding | | | | | | antibody can activate | | | | | | complement and lead to | | | | | | loss of AChR. Blocking | | | | | | antibody may impair | | | | | | binding of acetylcholine | | | | | | to the receptor, | | | | | | leading to poor muscle | | | | | | contraction. Modulating | | | | | | antibody causes receptor | | | | | | endocytosis resulting | | | | | | in loss of AChR | | | | | | expression, which | | | | | | correlates most closely | | | | | | with clinical severity | | | | | | of disease. | | | | | | Approximately 10-15 | | | | | | percent of individuals | | | | | | with confirmed | | | | | | myasthenia gravis have | | | | | | no measurable binding, | | | | | | blocking, or modulating | | | | | | antibodies. Test | | | | | | developed and | | | | | | characteristics | | | | | | determined by [facility] | | | | | | Laboratories. See | | | | | | Compliance Statement B: | | | | | | [employer]/CS | | | | + + + + + + | ACETYLCHOLI | 3Comment: Repeated and | 0 - 26 % | [facility] | | | NE RECEPTOR | VerifiedINTERPRETIVE | | REG UNIV | | | BLOCKING | INFORMATION: | | PTH - INTFC | | | AB | Acetylcholine Blocking | | | | | | Ab Negative | | | | | | ............ 0-26 | | | | | | percent blocking | | | | | | Indeterminate ....... | | | | | | 27-41 percent blocking | | | | | | Positive ............ | | | | | | 42 percent or greater | | | | | | blocking Approximately | | | | | | 85-90 percent of | | | | | | patients with myasthenia | | | | | | gravis (MG) express | | | | | | antibodies to the | | | | | | acetylcholine receptor | | | | | | (AChR), which can be | | | | | | divided into binding, | | | | | | blocking, and modulating | | | | | | antibodies. Binding | | | | | | antibody can activate | | | | | | complement and lead to | | | | | | loss of AChR. Blocking | | | | | | antibody may impair | | | | | | binding of acetylcholine | | | | | | to the receptor, | | | | | | leading to poor muscle | | | | | | contraction. Modulating | | | | | | antibody causes receptor | | | | | | endocytosis resulting | | | | | | in loss of AChR | | | | | | expression, which | | | | | | correlates most closely | | | | | | with clinical severity | | | | | | of disease. | | | | | | Approximately 10-15 | | | | | | percent of individuals | | | | | | with confirmed | | | | | | myasthenia gravis have | | | | | | no measurable binding, | | | | | | blocking, or modulating | | | | | | antibodies. Test | | | | | | developed and | | | | | | characteristics | | | | | | determined by [facility] | | | | | | Laboratories. See | | | | | | Compliance Statement B: | | | | | | [employer]/CSPerformed | | | | | | by [facility] | | | | | | [facility] | | | | | | [address] | | | | | | [phone].QPDlab. | | | | | | [facility], Wayne Nayak, | | | | | | Mariana PEDROZA. Director | | | | + + + + + + + + | Specimen | + + | Blood - Blood | + + + + + + + | Performing | Address | City/State/[facility] | Phone Number | | Organization | | | | + + + + + | [facility] | [address] | [place], [place] | | | UNIV PTH - INTFC | | [address] | | + + + + + VITAMIN B6, PLASMA (12/22/2015 4:47 PM PDT) + + + + + + | Component | Value | Ref Range | Performed | Pathologist | | | | | At | Signature | + + + + + + | VITAMIN B6 | 10.2 (L)Comment: | 20.0 - 125.0 | [facility] | | | (LAB) | INTERPRETIVE | nmol/L | REG UNIV | | | | INFORMATION: Vitamin B6 | | PTH - INTFC | | | | (Pyridoxal 5-Phosphate) | | | | | | Pyridoxal 5'-phosphate | | | | | | measured in a specimen | | | | | | collected following an | | | | | | 8-hour or overnight fast | | | | | | accurately indicates | | | | | | vitamin B6 nutritional | | | | | | status. Non-fasting | | | | | | specimen concentration | | | | | | reflects recent vitamin | | | | | | intake. Test developed | | | | | | and characteristics | | | | | | determined by [facility] | | | | | | Laboratories. See | | | | | | Compliance Statement B: | | | | | | V[employer].Un[employer]/CSPerformed | | | | | | by [facility] | | | | | | [facility] | | | | | | [address] | | | | | | [phone].QPDlab. | | | | | | com, Wayne Nayak, | | | | | | , Lab. Director | | | | + + + + + + + + | Specimen | + + | Blood - Blood | + + + + + + + | Performing | Address | City/State/Zipcode | Phone Number | | Organization | | | | + + + + + | [facility] | [address] | [place], [place] | | | UNIV PTH - INTFC | | [address] | | + + + + + VITAMIN E, SERUM (12/22/2015 4:47 PM PDT) + + + + + + | Component | Value | Ref Range | Performed | Pathologist | | | | | At | Signature | + + + + + + | VITAMIN E | 1.9Comment: Performed by | 0.0 - 6.0 mg/L | [facility] | | | (FRANCISCO J JULITA) | [facility],[address] | | REG UNIV | | | SERUM | [address], [facility] | | PTH - INTFC | | | | [address] | | | | | | [phone].QPDlab. | | | | | | Wayne lovelace, | | | | | | , Lab. Director | | | | + + + + + + | VITAMIN E | 7.4Comment: Test | 5.5 - 18.0 mg/L | [facility] | | | (ALPHA | developed and | | REG UNIV | | | JULITA), SERUM | characteristics | | PTH - INTFC | | | | determined by [facility] | | | | | | Laboratories. See | | | | | | Compliance Statement B: | | | | | | FDTEK/CS | | | | + + + + + + + + | Specimen | + + | Blood - Blood | + + + + + + + | Performing | Address | City/State/Zipcode | Phone Number | | Organization | | | | + + + + + | [facility] | [address] | [place], [place] | | | UNIV PTH - INTFC | | [address] | | + + + + + VITAMIN B-12 (12/22/2015 4:47 PM PDT) + +-------+ + + + | Component | Value | Ref Range | Performed | Pathologist | | | | | At | Signature | + +-------+ + + + | VITAMIN B12 | 330 | 193 - 986 pg/mL | [facility] | | | | | | LABORATORY | | | | | | SERVICES, | | | | | | CORE | | + +-------+ + + + | COMMENT | 2 | | [facility] | | | (HEMO) | | | LABORATORY | | | | | | SERVICES, | | | | | | CORE | | + +-------+ + + + | COMMENT | 1 | | [facility] | | | (ICTERUS) | | | LABORATORY | | | | | | SERVICES, | | | | | | CORE | | + +-------+ + + + | COMMENT | 2 | | [facility] | | | (LIPEMIA) | | | LABORATORY | | | | | | SERVICES, | | | | | | CORE | | + +-------+ + + + + + | Specimen | + + | Blood - Blood | | (substance) | + + + + + | Narrative | Performed At | + + + | New method and performing lab effective 09/16/15. | [facility] | | | LABORATORY | | | SERVICES, CORE | + + + + + + + + | Performing | Address | City/State/Zipcode | Phone Number | | Organization | | | | + + + + + | [facility] | [address] | [place] [address] | | | SERVICES, CORE | [address] | | | + + + + + VITAMIN B1, WHOLE BLOOD (12/22/2015 4:47 PM PDT) + + + + + + | Component | Value | Ref Range | Performed | Pathologist | | | | | At | Signature | + + + + + + | VITAMIN B1, | 122Comment: INTERPRETIVE | 70 - 180 nmol/L | [facility] | | | WHOLE | INFORMATION: Vitamin | | REG UNIV | | | BLOOD | B1, Whole Blood This | | PTH - INTFC | | | | assay measures the | | | | | | concentration of | | | | | | thiamine diphosphate | | | | | | (TDP), the primary | | | | | | active form of vitamin | | | | | | B1. Approximately 90 | | | | | | percent of vitamin B1 | | | | | | present in whole blood | | | | | | is TDP. Thiamine and | | | | | | thiamine monophosphate, | | | | | | which comprise the | | | | | | remaining 10 percent, | | | | | | are not measured. Test | | | | | | developed and | | | | | | characteristics | | | | | | determined by [facility] | | | | | | Laboratories. See | | | | | | Compliance Statement B: | | | | | | [facility]Un[employer]/CSPerformed | | | | | | by [facility] | | | | | | [facility] | | | | | | [address] | | | | | | [phone].[facility]. | | | | | | com, Wayne Nayak, | | | | | | MD Lab. Director | | | | + + + + + + + + | Specimen | + + | Blood - Blood | + + + + + + + | Performing | Address | City/State/Zipcode | Phone Number | | Organization | | | | + + + + + | [facility] | [address] | [place], [place] | | | UNIV PTH - INTFC | | [address] | | + + + + + documented in this encounter Visit Diagnoses + + | Diagnosis | + + | Diplopia | + + documented in this encounter"
--- OUTSIDE RECORDS SUMMARY | ~2019-01-17 | XMS | Encounter Summary ---
Demographics + + + | Address | [address] | | | [place] [address] | + + + | Home Phone | | + + + | Preferred Language | Unknown | + + + | Marital Status | Single | + + + | Yazidi Affiliation | Unknown | + + + | Race | White | + + + | Ethnic Group | Not or | + + + Author + + + | Author | [facility] | + + + | Organization | [facility] | + + + | Address | Unknown | + + + | Phone | Unavailable | + + + Support + + +---------+ + | Name | Relationship | Address | Phone | + + +---------+ + | Marianne Cabrera | ECON | Unknown | | + + +---------+ + Care Team Providers + +------+ + | Care Leak Patcher Name | Role | Phone | + [...] Lab Results | | 2015 | | Howell | MD [address] | | | | | Neuro-Ophthalmology | [place], [place] | | | | | at [facility] [address] | [address] | | | | | Ave Mailcode: CH[address]G | [phone] | | | | | [facility] | | | | | | jonathan Rg, | | | | | | [facility] | | | | | | [place], [place] | | | | | | [address] | | | | | | [phone] | | | +--------+ + + + [...]
--- OUTSIDE RECORDS SUMMARY | ~2019-01-17 | XMS | Encounter Summary ---
Demographics + + + | Address | [address] | | | [place] [address] | + + + | Home Phone | | + + + | Preferred Language | Unknown | + + + | Marital Status | Single | + + + | Judaism Affiliation | Unknown | + + + | Race | White | + + + | Ethnic Group | Not or | + + + Author + + + | Author | [facility] | + + + | Organization | [facility] | + + + | Address | Unknown | + + + | Phone | Unavailable | + + + Support + + +---------+ + | Name | Relationship | Address | Phone | + + +---------+ + | Marianne Cabrera | ECON | Unknown | | + + +---------+ + Care Team Providers + +------+ + | Care Account Resolution Analyst Name | Role | Phone | + +------+ + | Rafita Manning DO | PCP | | + +------+ + Reason for Referral Diagnostic Testing (Urgent) +--------+--------+ + + + + | Status | Reason | Specialty | Diagnoses / | Referred By | Referred To | | | | | Procedures | Contact | Contact | +--------+--------+ + + + + | Closed | | Radiology | Diagnoses | Lorraine, | Rad Mri | | | | | Diplopia | Anthony King, | [address] | | | | | Procedures | MD [address] | [address] | | | | | MRI BRAIN | [address] | Mailcode: | | | | | AND ORBITS | [facility] [place] | [facility] | | | | | [address]AST | [address] | for Health | | | | | | Phone: | and Healing, | | | | | | [phone] | Building [address], | | | | | | Fax: | 3rd Floor | | | | | | [phone] | [place], [place] | | | | | | | [address] | | | | | | | Phone: | | | | | | | [phone] | | | | | | | Fax: | | | | | | | [phone] | +--------+--------+ + + + + Reason for Visit + + + | Reason | Comments | + + + | New patient | | | consultation | | + + + Intake Referral (Routine) +--------+--------+ + + + + | Status | Reason | Specialty | Diagnoses / | Referred By | Referred To | | | | | Procedures | Contact | Contact | +--------+--------+ + + + + | Closed | | Ophthalmology | Diagnoses | Kerri, | [facility] | | | | | Diplopia | DO Rafita | [address] | | | | | Other | [address] | [address] | | | | | subjective | [place], | Mailcode: | | | | | visual | [place] | [facility] | | | | | disturbances | [address] | [facility] | | | | | | Phone: | and Healing, | | | | | | [phone] | Building [address], | | | | | | Fax: | 11th Floor | | | | | | [phone] | [place], [place] | | | | | | | [address] | | | | | | | Phone: | | | | | | | [phone] | | | | | | | Fax: | | | | | | | [phone] | +--------+--------+ + + + + Encounter Details +--------+---------+ + + + | Date | Type | Department | Care Team | Description | +--------+---------+ + + + | 12/21/ | Office | [facility] | Anthony Peters, | Diplopia (Primary | | 2016 | Visit | [place] | MD [address] | Dx) | | | | Neuro-Ophthalmology | [place], [place] | | | | | at [facility] [address] | [address] | | | | | Ave Mailcode: [facility] | [phone] | | | | | [facility] | | | | | | and Healing, | | | | | | Building | | | | | | [place], [place] | | | | | | [address] | | | | | | [phone] | | | +--------+---------+ + + + Social History + +-------+ [...] + + documented as of this encounter Progress Notes Anthony Peters MD - 12/22/2015 2:25 PM PDTFormatting of this note might be different fr om the original. Neuro-Ophthalmology New Patient Evaluation 12/31/2015 Referred by: Rafita Manning DO Source of History: Patient and chart review Chief Complaint: New patient consultation Present Illness: Sajan Bray is a 50 y.o. male. Had seen Dr Villalobos for diplopia -- 4-5 months ago () Then vision progressed to triple with 3D effect, vladimir with bright colors -- they will run to gether. Eg. Watching big screen TV -- cannot tell what is going on. Binocular horizontal diplopia. Notes in distance No diplopia at near, however, difficulty reading book. Words are blurred out. Rx - Dr Cobos -- no significant change in RX No occurrence of diplopia. No PST Feels like electrical band around forehead, with straps hanging down by both ears. Will g et electrical shocks, very brief "jolt" "almost can hear it buzzing" Associated bilateral vision loss OS>> OD with jolt. No loss of b/b control. Just a momentary pause in conversation however can case picker right away. No spacing out. 1yr ago -- hospitalized for Renal failure and reported near syncope. No need for dialysis. Wt loss 180 - 116 lbs - just prior to hospitalization in Dec 2014 now 130. headache -- "problem my whole life" however, better lately -- maybe every few weeks. Assoc: Photophobia, phonophobia Meds - couple of alemarcos Has Seen neurology - Dr Cowan -- "not a neurology problem" Has seen endocrine -- not endocrine Current Outpatient Prescriptions Medication (No Medication Selected) busPIRone 30 mg oral tablet clonazePAM 2 mg oral tablet cloNIDine HCl 0.2 mg oral tablet FLUoxetine 40 mg oral capsule methylphenidate 20 mg oral tablet naproxen sodium (ALEVE) 220 mg oral capsule promethazine 25 mg oral tablet testosterone cypionate (DEPO-TESTOSTERONE) 200 mg/mL intramuscular oil testosterone cypionate 200 mg/mL intramuscular kit testosterone cypionate 200 mg/mL intramuscular oil ziprasidone 60 mg oral capsule zolpidem 10 mg oral tablet No current facility-administered medications for this visit. Allergies Allergen Reactions Gabapentin Unknown Zithromax [Azithromycin] Unknown Past Medical History Diagnosis Date Bipolar 1 disorder (HCC) Anxiety PTSD (post-traumatic stress disorder) Depression Kidney failure due to transgender ?? 2015 Weight loss Loss of taste Fatigue History of dental problems Past Surgical History Procedure Laterality Date Tonsillectomy Tmj arthrocentesis Right arm nerve problem Female to male gender change Kidney failure Excision of gall bladder Kidney stone surgery x4 POH: No previous eye surgeries or injuries Family History Problem Relation Macular degeneration Father Additional Family History Mother mothers family Additional Family History Mother stroke Additional Family History Mother migraine Additional Family History Brother migraine ROS Positive for: Constitutional (unintentional weight los), Gastrointestinal (IBS), Neurologi ken (electrical band feeling around head), Skin (ezema), Genitourinary (acute kidney injury) , Musculoskeletal (back pain and stiffness), HENT (itchy ears), Psychiatric (anxiety, bipola r, PTSD, anxiety, clinical depression, insomnia) Negative for: Endocrine, Cardiovascular, Eyes, Respiratory, Allergic/Imm, Heme/Lymph Last edited by Delia Salvador on 12/23/2015 1:13 PM. (History) Social History: Social History Social History Marital Status: Single Spouse Name: N/A Number of Children: N/A Years of Education: N/A Occupational History Not on file. Social History Main Topics Smoking status: Current Some Day Smoker Smokeless tobacco: Never Used Comment: trying to quit, using e cigs, and nicotine gum and patch Alcohol Use: No Drug Use: No Sexual Activity: Not on file Other Topics Concern Not on file Social History Narrative Neuro-ophthalmic Exam: Vital Signs: There were no vitals taken for this visit. Pain level: 0/10 Ophthalmology Exam Visual Acuity (Snellen - Linear) Right Left Dist cc 20/20 -3 20/25 -2 Dist ph cc NI Correction: Glasses Color Right Left Clark - [place] - Rittler 11/1110 Stereo Fly: + Animals: 2/3 Circles: 2/9 Visual Arora (Counting fingers) Left Right Result Full Full Pupils Dark Light React APD Right 6 4 Brisk None Left 6.5 4 Brisk None Extraocular Movement Right Left Result Abnormal Abnormal -1 0 0 -1 0 -1 0 0 0 0 -1 0 -1 0 0 -1 EOM made him feel woozy Strabismus Exam Method: Alternate cover Distance Near Near +3.00DS Near Bifocals Correction: cc -1 0 0 0 0 -1 R Tilt ET 14 -1 0 E(T) 12 0 -1 ET 12 L Tilt -1 0 0 0 0 -1 DVD: DVD: Sensory Comments Near comitant esotropia Slit Lamp and Fundus Exam External Exam Right Left External Normal Normal Slit Lamp Exam Right Left Lids/Lashes Normal Normal Conjunctiva/Sclera White and quiet White and quiet Cornea All layers clear All layers clear Anterior Chamber Deep and quiet Deep and quiet Iris Normal Normal Lens Clear Clear Vitreous Normal Normal Fundus Exam Right Left Disc Register, Flat Register, Flat C/D Ratio 0.3 0.3 Macula Normal Normal Vessels Normal Normal Tonometry (Applanation, 2:52 PM) Right Left Pressure 13 15 Dilation Both eyes: 1.0% Mydriacyl @ 3:03 PM 12/22/2015 Visual Field Interpretation - NT Ancillary tests/Review of data: July 29, 2015 Dr. Cobos optometry notes 2020 both eyes, diplopia getting worse Imaging Tests: None for review Impression: 1. 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 Upper extremity weakness, paresthesias, change in voice -- insetting weight loss last year, consider central pontine myelinosis vs MG Plan: 1. Labs: Vit B12, B1, E, B3, Vit D, CBC, CMP, anti-TPO, thyroid receptor antibodies, thyr oid stimulating, acetylcholine receptor antibodies (Niacin ordered - however, lab failed to collect properly) immunoglobulins, 2. MRI brain and orbits wwo -- rule out clival lesion, bilateral 6th? thyroid associated or bitopathy? 3. RTC pending results above, PRN follow up with Dr Cobos as planned and Dr Manning. Patient seen and discussed with Attending Physician, Dr. Anthony Peters. Pietro Maddox, PGY2 [facility] [place] I saw and examined the patient. I reviewed the patient s past medical, family and social history,current medications, allergies, and ROS documented by the commercial hvac service technician. I reviewed an d agree with the resident s interpretation of the sensorimotor exam. I have reviewed the r esident s documentation and I agree. Basic voice recognition software was utilized for po rtions of this note and reviewed. Please notify our office of any pertinent errors. MDM inc luded the conditions listed above under the impression when considering the etiology, diagno sis and management of Sajan's presenting neuro-ophthalmic signs/symptoms. Anthony Peters M.D. [employer] Ophthalmology and Neurology Diplomate of Neurology, ABPN Neuro-ophthalmology service [facility] documented in this e ncounter Plan of Treatment Not on filedocumented as of this encounter Results MRI BRAIN AND ORBITS WWO CONTRAST (12/22/2015 10:14 PM PDT) + + + + + + | Component | Value | Ref Range | Performed | Pathologist | | | | | At | Signature | + + + + + + | MR BRAIN | EXAM: MRI brain and | | | | | AND ORBITS | orbits without and with | | | | | WWO | contrast HISTORY: | | | | | CONTRAST | Diplopia with clinical | | | | | | exam revealing bilateral | | | | | | 6th nerve paresis | | | | | | anddivergence | | | | | | insufficiency.COMPARISON | | | | | | : None TECHNIQUE: | | | | | | Multiplanar | | | | | | multi-sequence MRI of | | | | | | the brain and orbits | | | | | | without andwith | | | | | | gadolinium based | | | | | | intravenous contrast. | | | | | | FINDINGS: Orbits: Normal | | | | | | appearance of the | | | | | | orbits, extraocular | | | | | | muscles, and optic | | | | | | nerves.No abnormal | | | | | | enhancement or mass | | | | | | lesion.Brain: No acute | | | | | | intracranial | | | | | | abnormality. No | | | | | | evidence of hemorrhage, | | | | | | mass, oracute | | | | | | infarction. The | | | | | | ventricles are normal in | | | | | | size and morphology. | | | | | | Noabnormal | | | | | | enhancement.Soft tissues | | | | | | and marrow: | | | | | | Unremarkable | | | | | | IMPRESSION:Exam within | | | | | | normal limits. | | | | | | Attending Radiologists: | | | | | | MJ SPENCER, | | | | | | MDAuthor: LISA | | | | | | MD BIENVENIDO I personally | | | | | | reviewed the images and, | | | | | | if necessary, edited | | | | | | the report. I agreewith | | | | | | the report as now | | | | | | presented. | | | | | | Final/Electronically | | | | | | signed / MJ | | | | | | JOHANNA 12/24/2015 15:05 | | | | | | PM Pending final | | | | | | approval / LSIA | | | | | | BIENVENIDO 12/23/2015 15:14 | | | | | | PM Preliminary / | | | | | | LISA FARIA | | | | | | 12/23/2015 9:30 AM | | | | + + + + + + + + | Specimen | + + | | + + + +---------+ + + | Performing | Address | City/State/Zipcode | Phone Number | | Organization | | | | + +---------+ + + | [place] [facility] | | | | | RADIOLOGY | | | | + +---------+ + + TSH RECEPTOR AB, SERUM (12/22/2015 4:47 PM [...] by | | | | | | [address] | | | | | | [facility] | | | | | | [address] | | | | | | [phone].[facility]. | | | | | | Wayne [...] [facility] | [address] | [place], [place] | | | UNIV PTH - [place] | | [address] | | + + + + + [...] | | | | | determined by [facility] | | | | | | Laboratories. See | | | | | | Compliance Statement B: | | | | | | [facility].com/CSPerformed | | | | | | by [address] | | | | | | [place] | | | | | | [address] | | | | | | [phone].[facility]. | | | | | | Wayne lovelace, | | | | | | Lab. YOVANY Director | | | | + + + + + + + + | Specimen | + + | Blood - Blood | + + + + + + + | Performing | Address | City/State/Zipcode | Phone Number | | Organization | | | | + + + + + | [facility] | [address] | [place], [place] | | | UN[address] [place] | | [address] | | + + + + + [...] | [facility] | | | PEROXIDASE | [address] | | REG UNIV | | | AB | Sandhy[place]ente, [facility],[place] | | PTH - INTFC | | | | [address] | | | | | | [phone].[facility]. | | | | | | com, [...] [facility] | [address] | [place], [place] | | | UNIV P[address] - INT[place] | | [address] | | + + + + + [...] | | | | | | | [email or web address] | | | | | | 001Performed by [facility] | | | | | | Laboratories,April [address] | | | | | | [place] [address] | | | | | | [phone].[facility]. | | | | | | Wayne lovelace, | | | | | | Mariana [...] [facility] | [address] | [place], [place] | | | UNIV PTH - INTFC | | [address] | | + + + + + [...] by | | | | | | [address] | | | | | | Sandhya Valente, [facility],[place] | | | | | | [address] | | | | | | [phone].[facility]. | | | | | | Wayne lovelace, | | | | | | Mariana PEDROZA. Director | | | | + + + + + + + + | Specimen | + + | Blood - Blood | + + + + + + + | Performing | Address | City/State/Zipcode | Phone Number | | Organization | | | | + + + + + | [facility] | [address] | [place], [place] | | | UN[address] [place] | | [address] | | + + + + + [...] by | | | | | | [address] | | | | | | Sandhya Valente, [facility],[place] | | | | | | [address] | | | | | | [phone].[facility]. | | | | | | [place], [place] Nayak, | | | | | [...] [facility] | [address] | [place], [place] | | | UNIV PTH - INTFC | | [address] | | + + + + + [...] B: | | | | | | [employer]/CS | | | | + + + [...] B: | | | | | | [facility].com/CSPerformed | | | | | | by [facility],[address] | | | | | | [place] | | | | | | [address] | | | | | | [phone].[facility]. | | | | | | Wayne lovelace, | | | | | | Mariana [...] [facility] | [address] | [place], [place] | | | UNIV P[address] - [place]FC | | [address] | | + + + + + [...] | | | | | determined by [facility] | | | | | | Laboratories. See | | | | | | Compliance Statement B: | | | | | | [facility].fromAtoB/CSPerformed | | | | | | by [address] | | | | | | Sandhya Valente [facility],[place] | | | | | | [address] | | | | | | [phone].[facility]. | | | | | | [facility], Wayne Nayak, | | | | [...] [facility] | [address] | [place], [place] | | | UNIV PTH - INTFC | | [address] | | + + + + + [...] | | | (FRANCISCO J JULITA) | [employer] | | REG UNIV | | | SERUM | Sandhya Valente, [facility],[place] | | PTH - INTFC | | | | [address] | | | | | | [phone].[facility]. | | | | | | [place], Wayne Nayak, | | | | | [...] B: | | | | | | [facility].fromAtoB/CS | | | | + + + + + + + + | Specimen | + + | Blood - Blood | + + + + + + + | Performing | Address | City/State/Zipcode | Phone Number | | Organization | | | | + + + + + | [facility] | [address] | [place], [place] | | | UN[address] - [place] | | [address] | | + + + + + [...] method and performing lab effective 09/16/15. | [facility] | | | [facility] | | | RONNIE ODONNELL | + + + + + + + + | Performing | Address | City/State/Zipcode | Phone Number | | Organization | | | | + + + + + | [facility] | [address] | [place] [address] | | | RONNIE ODONNELL | [address] | | | + [...] B: | | | | | | [employer]/CSPerformed | | | | | | by [address] | | | | | | Sandhya Valente, [facility],[place] | | | | | | [address] | | | | | | [phone].[facility]. | | | | | | [facility], Wayne Nayak, | | | | [...] + | [facility] | [address] | [place], [place] | | | UN[address] [place] | | [address] | | + + + + + documented in this encounter Visit Diagnoses + + | Diagnosis | + + | Diplopia - Primary | + + documented in this encounter
--- OUTSIDE RECORDS SUMMARY | ~2019-01-17 | XMS | Encounter Summary ---
Demographics + + + | Address | [address] | | | [place] [address] | + + + | Home Phone | | + + + | Preferred Language | Unknown | + + + | Marital Status | Single | + + + | Congregation Affiliation | Unknown | + + + | Race | White | + + + | Ethnic Group | Not or | + + + Author + + + | Author | [facility] | + + + | Organization | [facility] | + + + | Address | Unknown | + + + | Phone | Unavailable | + + + Support + + +---------+ + | Name | Relationship | Address | Phone | + + +---------+ + | Marianne Cabrera | ECON | Unknown | | + + +---------+ + Care Team Providers + +------+ + | Care Electromedical Equipment Repairer Name | Role | Phone | + [...] Lab Results | | 2015 | | Sanders | MD Gabby Cortez | | | | | Neuro-Ophthalmology | [place], [place] | | | | | at [facility] [address] | [address] | | | | | Ave Mailcode: [address] | [phone] | | | | | [facility] | | | | | | jonathan Rg, | | | | | | [facility] | | | | | | [place], [place] | | | | | | [address] | | | | | | [phone] | | | +--------+ + + + [...]
--- OUTSIDE RECORDS SUMMARY | ~2019-01-17 | XMS | Clinical Summary ---
Demographics + + + | Address | [address] | | | [place] [address] | + + + | Home Phone | | + + + | Preferred Language | Unknown | + + + | Marital Status | Single | + + + | Orthodoxy Affiliation | 1013 | + + + | Race | Unknown | + + + | Ethnic Group | Unknown | + + + Author + + + | Author | [facility] | | | and [place] | + + + | Organization | [facility] | | | and [...] Team Providers + +------+ + | Care Distribution Analyst Name | Role | Phone | + +------+ + | Katharine Hernandez | PCP | | | PA | | | + +------+ + Allergies + + + + + + | Active Allergy | Reactions | Severity | Noted | Comments | | | | | Date | | + + + + + + | Aspirin | | Low | 09/17/19 | Other reaction(s): | | | | | 18 | Patient Does Not | | | | | | Remember Reportedly | | | | | | had as a child. | + + + + + + | Azithromycin | Hives | Medium | 09/17/19 | | | | | | 18 | | + + + + + + | Gabapentin | | | 12/23/19 | Other reaction(s): | | | | | 16 | Unknown | + + + + + + | Lamotrigine | Rash, Hives | Medium | 12/12/19 | | | [...] | | + + + +---------+------+------+-------+ | acetaminophen | Take 650 mg by | | 0 | 09/02 | | Activ | | (TYLENOL) 325 mg | mouth. | | | 12/22 | | e | | tablet | | | | 18 | | | + + + +---------+------+------+-------+ | Naproxen Sodium | Take by mouth. | | 0 | | | Activ | | 220 MG CAPS | | | | | | e | + + + +---------+------+------+-------+ | promethazine | Take by mouth. | | 0 | | | Activ | | (PHENERGAN) 25 mg | | | | | | e | | tablet | | | | | | | + + + +---------+------+------+-------+ | QUEtiapine | Take 400 mg by | | 0 | 06/1 | | Activ | | (SEROQUEL) 400 MG | mouth. | | | 5/20 | | e | | tablet | | | | 18 | | | + + + +---------+------+------+-------+ | testosterone | Inject into the | | 0 | | | Activ | | cypionate | muscle. | | | | | e | | (DEPO-TESTOSTERONE) | | | | | | | | 200 mg/mL injection | | | | | | | + + + +---------+------+------+-------+ | cloNIDine | Take 0.2 mg by | | 0 | | | Activ | | (CATAPRES) 0.2 MG | mouth. | | | | | e | | tablet | | | | | | | + + + +---------+------+------+-------+ | ALPRAZolam (XANAX) | Take 2 mg by mouth 3 | | 0 | | | Activ | | 2 MG tablet | times daily as | | | | | e | | | needed for Insomnia. | | | | | | + + + +---------+------+------+-------+ | busPIRone (BUSPAR) | Take 10 mg by mouth. | | 0 | 06/1 | | Activ | | 10 MG tablet | | | | 5/20 | | e | | | | | | 18 | | | + + + +---------+------+------+-------+ | FLUoxetine | Take 60 mg by mouth. | | 0 | 06/1 | | Activ | | (PROZAC) 20 mg | | | | 5/20 | | e | | capsule | | | | 18 | | | + + + +---------+------+------+-------+ | cloNIDine | clonidine HCl 0.1 mg | | 0 | | | Activ | | (CATAPRES) 0.1 mg/24 | tablet | | | | | e | | hr patch | | | | | | | + + + +---------+------+------+-------+ | scopolamine | Transderm-Scop 1.5 | | 0 | | | Activ | | (TRANSDERM-SCOP, 1.5 | mg transdermal patch | | | | | e | | MG,) 1 mg/3 days | (1 mg over 3 days) | | | | | | | patch | no longer taking | | | | | | + + + +---------+------+------+-------+ | ergocalciferol | Vitamin D2 50,000 | | 0 | | | Activ | | (VITAMIN D-2) 50,000 | unit capsule | | | | | e | | units capsule | | | | | | | + + + +---------+------+------+-------+ | | amoxicillin 875 | | 0 | | | Activ | | amoxicillin-clavulan | mg-potassium | | | | | e | | ate (AUGMENTIN) | clavulanate 125 mg | | | | | | | 875-125 mg per | tablet no longer | | | | | | | tablet | taking | | | | | | + + + +---------+------+------+-------+ | carBAMazepine | carbamazepine 200 mg | | 0 | | | Activ | | (TEGRETOL) 200 mg | tablet no longer | | | | | e | | tablet | taking | | | | | | + + + +---------+------+------+-------+ | clonazePAM | clonazepam 2 mg | | 0 | | | Activ | | (KLONOPIN) 2 MG | tablet current | | | | | e | | tablet | | | | | | | + + + +---------+------+------+-------+ | diazePAM (VALIUM) | diazepam 10 mg | | 0 | | | Activ | | 10 MG tablet | tablet current qid | | | | | e | + + + +---------+------+------+-------+ | fludrocortisone | fludrocortisone 0.1 | | 0 | | | Activ | | (FLORINEF) 0.1 mg | mg tablet no longer | | | | | e | | tablet | taking | | | | | | + + + +---------+------+------+-------+ | gabapentin | gabapentin 300 mg | | 0 | | | Activ | | (NEURONTIN) 300 mg | capsule | | | | | e | | capsule | | | | | | | + + + +---------+------+------+-------+ | gabapentin | Gralise 600 mg | | 0 | | | Activ | | (GRALISE) 600 mg | tablet,extended | | | | | e | | tablet | release current | | | | | | + + + +---------+------+------+-------+ | | hydrocodone 5 | | 0 | | | Activ | | HYDROcodone-acetamin | mg-acetaminophen 325 | | | | | e | | ophen (NORCO) 5-325 | mg tablet | | | | | | | mg per tablet | | | | | | | + + + +---------+------+------+-------+ | ibuprofen | ibuprofen 800 mg | | 0 | | | Activ | | (ADVIL,MOTRIN) 800 | tablet not taking | | | | | e | | MG tablet | | | | | | | + + + +---------+------+------+-------+ | meclizine | meclizine 25 mg | | 0 | | | Activ | | (ANTIVERT) 25 mg | tablet not on | | | | | e | | tablet | | | | | | | + + + +---------+------+------+-------+ | meloxicam (MOBIC) | meloxicam 15 mg | | 0 | | | Activ | | 15 mg tablet | tablet | | | | | e | + + + +---------+------+------+-------+ | | oxycodone-acetaminop | | 0 | | | Activ | | oxyCODONE-acetaminop | hen 5 mg-325 mg | | | | | e | | hen (PERCOCET) 5-325 | tablet not on | | | | | | | mg per tablet | | | | | | | + + + +---------+------+------+-------+ | pregabalin | Lyrica 150 mg | | 0 | | | Activ | | (LYRICA) 150 MG | capsule not on | | | | | e | | capsule | | | | | | | + + + +---------+------+------+-------+ | pregabalin | Lyrica 75 mg capsule | | 0 | | | Activ | | (LYRICA) 75 mg | not on | | | | | e | | capsule | | | | | | | + + + +---------+------+------+-------+ | prochlorperazine | prochlorperazine | | 0 | | | Activ | | 10 mg tablet | maleate 10 mg tablet | | | | | e | | | not on | | | | | | + + + +---------+------+------+-------+ | | sulfamethoxazole 800 | | 0 | | | Activ | | sulfamethoxazole-tri | mg-trimethoprim 160 | | | | | e | | methoprim (BACTRIM | mg tablet not on | | | | | | | DS) 800-160 mg per | | | | | | | | tablet | | | | | | | + + + +---------+------+------+-------+ | ziprasidone | ziprasidone 80 mg | | 0 | | | Activ | | (GEODON) 80 MG | capsule 2 in PM | | | | | e | | capsule | | | | | | | + + + +---------+------+------+-------+ | ALPRAZolam (XANAX) | alprazolam 1 mg | | 0 | | | Activ | | 1 MG tablet | tablet | | | | | e | + + + +---------+------+------+-------+ | busPIRone (BUSPAR) | buspirone 10 mg | | 0 | | | Activ | | 10 MG tablet | tablet | | | | | e | + + + +---------+------+------+-------+ | busPIRone (BUSPAR) | buspirone 30 mg | | 0 | | | Activ | | 30 MG tablet | tablet | | | | | e | + + + +---------+------+------+-------+ | FLUoxetine | fluoxetine 40 mg | | 0 | | | Activ | | (PROZAC) 40 MG | capsule | | | | | e | | capsule | | | | | | | + + + +---------+------+------+-------+ Active Problems + + + | Problem | Noted Date | + + + | Rectal bleeding | 11/06/2018 | + + + | 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 | + + + | Diarrhea | 11/06/2018 | + + + | Unexplained weight loss | 11/06/2018 | + + + | Kisw-kl-zsubhh transsexuality | 10/28/2018 | + + + | Epidermoid cyst | 10/28/2018 | + + + | History of traumatic brain injury | 10/28/2018 | + + + | Bipolar disorder | 12/16/2017 | + + + | Cognitive dysfunction | 09/16/2017 | + + + | Scqotz-ij-vkfz transgender person | 09/16/2017 | + + + | Generalized anxiety disorder | 09/16/2017 | + + + | Irritable bowel syndrome with diarrhea | 09/16/2017 | + + + | Impaired activities of daily living | 09/16/2017 | + + + | Impaired mobility | 09/16/2017 | + + + | Poor balance | 09/16/2017 | + + + | Smoker | 09/16/2017 | + + + | Cognitive and neurobehavioral dysfunction following brain injury | 09/15/2017 | + + + | Severe protein-calorie malnutrition | 09/13/2017 | + + + | Closed head injury | 08/18/2017 | + + + | Traumatic subarachnoid hemorrhage with loss of consciousness of | 08/18/2017 | | unspecified duration, initial encounter | | + + + + + | Overview: 12/16/17 MMSE: 03/09/18 MRI of Brain: No | | acute intracranial process Bifrontal encephalomalacia with mild | | gliosis.Mild supratentorial volume loss. 03/29/18 EEG: Normal | | awake and drowsy EEG | + + + + + | Fatigue | 12/26/2014 | + + + | Hypertensive disorder | 12/14/2014 | + + + | Nausea | 12/12/2014 | + + + | Sciatica of left side | 12/12/2014 | + + + | Nephrolithiasis | 04/04/2013 | + + + Encounters +--------+ + + + + | Date | Type | Specialty | Care Team | Description | +--------+ + + + + | 11/07/ | Telephone | Neurology | Lazaro Haynes MD | Patient Concerns | | 2018 | | | | | +--------+ + + + + | 11/06/ | Orders Only | Radiology | Radha, | | | 2018 | | | MD Angelika | | +--------+ + + + + | 10/31/ | Procedure | Neurology | Geovanna, | Traumatic brain | | 2018 | visit | | [place], | injury, with loss of | | | | | Lazaro Gomes MD | consciousness of 30 | | | | | | minutes or less, | | | | | | sequela (HCC) | | | | | | (Primary Dx) | +--------+ + + + + from Last 3 Months Immunizations + + + + | Name | Dates Previously Given | Next Due | + + + + | INFLUENZA TRIV | 02/20/2011 | | | W/PRES(PED/ADOL/ADUL | | | | T),MULTIDOSE | | | + + + + | TDAP, (ADOL/ADULT) | 08/18/2017 | | + + + + Family History + +------+--------+ + | Relation | Name | Status | Comments | + +------+--------+ + | Brother | | Alive | | + +------+--------+ + | Father | | Alive | | + +------+--------+ + | Mother | | Alive | | + +------+--------+ + | Sister | | Alive | | + +------+--------+ + Social History [...] | + + Last Filed Vital Signs + + + + | Vital Sign | Reading | Time Taken | + + + + | Blood Pressure | 127/102 | 10/11/2018 1309 PDT | + + + + | Pulse | 98 | 10/11/20181308 PDT | + + + + | Temperature | 36.9 C (98.4 F) | 09/16/20171126 PDT | + + + + | Respiratory Rate | 18 | 10/11/20181308 PDT | + + + + | Oxygen Saturation | 96% | 10/11/20181308 PDT | + + + + | Inhaled Oxygen | - | - | | Concentration | | | + + + + | Weight | 83 kg (183 lb) | 10/11/20181308 PDT | + + + + | Height | 165.1 cm (5' 5") | 10/11/2018 1309 PDT | + + + + | Body Mass Index | 30.45 | 10/11/2018 1309 PDT | + + + + Plan of Treatment +--------+---------+ + + + | Date | Type | Specialty | Care Team | Description | +--------+---------+ + + + | 03/22/ | Office | Neurology | Geovanna, | | | 2018 | Visit | | [facility] [place] [place] [address] [place], | | | | | | [place] [address] | | | | | | [phone] | | | | | | | | +--------+---------+ + + + | 05/29/ | Office | Neurology | Lazaro Haynes MD | | | 2020 | Visit | | [address] | | | | | | [place] | | | | | | [address] | | | | | | | | +--------+---------+ + + + + + + + + | Health [...] | + + + + + | Colorectal Cancer | | | | | Screening | 5 | | | | (Colonoscopy) | | | | + + + + + | Vaccine: Zoster (1 | | | | | of 2) | 5 | | | + + + + + | Adult Annual | | | | | Wellness Visit | 8 | | | + + + + + | Vaccine: Influenza | | 02/20/2011 | | | (#1) | 9 | | | + + + + + | Vaccine: | | 08/18/2017 | | | Dtap/Tdap/Td (2 - | 8 | | | | Td) | | | | + + + + + | Hepatitis C | Completed | 12/12/2014 | | | Screening | | | | + + + + + Procedures + +--------+ + + + | Procedure Name | Priori | Date/Time | Associated Diagnosis | Comments | | | ty | | | | + +--------+ + + + | NEUROTRAX: | Today | 10/31/2018 | Traumatic | Results for this | | COMPUTERIZED | | 14:45 PDT | subarachnoid | procedure are in the | | NEUROCOGNATIVE | | | hemorrhage with loss | results section. | | TESTING | | | of consciousness of | | | | | | unspecified | | | | | | duration, initial | | | | | | encounter (HCC) | | | | | | Memory loss | | + +--------+ + + + from Last 3 Months Results NEUROTRAX: COMPUTERIZED NEUROCOGNATIVE TESTING (10/31/2018 14:45 PDT) + + + | Narrative | Performed At | + + + | Lazaro Haynes MD 11/07/2018 16:33 Ordering Provider | | | Lazaro Haynes Supervising Provider Dr. Lazaro Haynes Interpreting | | | Provider Dr. Lazaro Haynes Testing performed by Cortes Bliss CMA | | | Start Time 1500 Stop Time 1610 Duration of Test One hour and 10 | | | minutes Sajan Bray is a 53 y.o. y.o. old pt who presents | | | for Neurotrax testing. Pt tolerated test with some difficulty. | | | Neurotrax results given to Dr. Haynes for review and follow up. | | | Physician Interpretation: Abnormal Neurotrax testing demonstrating | | | moderate to severe cognitive dysfunction with Global Cognitive score | | | of 66.9 Abnormal NeuroTrax Testing showing deficits in: | | | Memory with score of 47.7 was Abnormal Executive Function with | | | score of 69.5 was Abnormal Attention with score of 48.9 was | | | Abnormal Information Processing Speed with score of 47.5 was Abnormal | | | Visual Spatial Processing with score of 93.8 was Normal Verbal | | | Function with score of 71.2 was Abnormal Motor Skills with score of | | | 89.8 was Normal Results demonstrate: Moderate to severe | | | diffuse cognitive dysfunction A total time of 15 minutes were | | | spent evaluating and interpreting this test. Treatment plan is | | | as follows: Advised to keep reading newspaper, magazines, and | | | perform word finding exercises. Take Vit E and Vit B complexes | | | and discussed with his friend In the phone Marianne. Discussed | | | ordering cognitive training thru [facility] if available. | | | Patient was contacted on 11/07/2018 explaining the results. | | | Patient/Family communicated understanding of the results and have no | | | further questions. Thank you for allowing us to participate in the | | | care of your patient. Sincerely, Dr. Lazaro Haynes | | | 08/05/20187:51 Neurologist | | + + + from Last 3 Months Insurance + +--------+ +--------+ +---------+--------+ | Payer | Benefi | Subscriber | Effect | Phone | Address | Type | | | t Plan | ID | agnes | | | | | | / | | Dates | | | | | | Group | | | | | | + +--------+ +--------+ +---------+--------+ | [employer] | [employer] | [id number] | 04/04/19 | | | Medica | | | HEALTH | | 17-Pre | | | re | | | MDCR | | sent | | | | + +--------+ +--------+ +---------+--------+ | [employer] | [employer] | [id number] | 04/04/19 | | | Medica | | | HEALTH | | 17-Pre | | | re | | | MDCR | | sent | | | | + +--------+ +--------+ +---------+--------+ | [employer] | [employer] | [id number] | | | | Medica | | | HEALTH | | 018-Pr | | | re | | | MDCR | | esent | | | | + +--------+ +--------+ +---------+--------+ | [employer] | [employer] | [id number] | 04/04/19 | [phone] | | Medica | | MEDICAID HMO | HEALTH | | 18-Pre | 1 | | id | | | MDCD | | sent | | | | | | [place]MO [place] | | | | | | + +--------+ +--------+ +---------+--------+ | [employer] | MOD[employer] | [id number] | | [phone] | | Medica | | MEDICAID HMO | HEALTH | | 018-Pr | 1 | | id | | | MDCD | | esent | | | | | | [place] | | | | | | + +--------+ +--------+ +---------+--------+ | [employer] | MOD[employer] | [id number] | | [phone] | | Medica | | MEDICAID HMO | HEALTH | | 018-Pr | 1 | | id | | | MDCD | | esent | | | | | | [place] | | | | | | + +--------+ +--------+ +---------+--------+ + +--------+ +--------+ + + | Guarantor Name | Accoun | Relation to | Date | Phone | Billing Address | | | t Type | Patient | of | | | | | | | | | | + +--------+ +--------+ + + | Sajan Bray | Person | Self [birth year] | [address] | | | al/Fam | | 1966 | [phone] | [address] [place], | | | greg | | | 1 (Home) | [place] [address] | + +--------+ +--------+ + + | Sajan Bray | Person | Self | [birth year] | [address] | | | al/Fam | | 1966 | [phone] | [address] [place], | | | greg | | | 1 (Home) | [place] [address] | + +--------+ +--------+ + + | Sajan Bray | Mental | Self | [birth year] | | [address] | | | | | 1966 | [phone] | [address] [place], | | | Health | | | 1 (Home) | [place] [address] | + +--------+ +--------+ + + Advance Directives Patient has advance care planning documents on file. For more information, please contact:[facility] [place] [address]
--- OUTSIDE RECORDS SUMMARY | ~2019-01-17 | XMS | Encounter Summary ---
Demographics + + + | Address | [address] | | | [place] [address] | + + + | Home Phone | | + + + | Preferred Language | Unknown | + + + | Marital Status | Single | + + + | Restoration Affiliation | Unknown | + + + | Race | White | + + + | Ethnic Group | Not or | + + + Author + + + | Author | [facility] | + + + | Organization | [facility] | + + + | Address | Unknown | + + + | Phone | Unavailable | + + + Support + + +---------+ + | Name | Relationship | Address | Phone | + + +---------+ + | Marianne Cabrera | ECON | Unknown | | + + +---------+ + Care Team Providers + +------+ + | Care Private Watchman Name | Role | Phone | + [...] | | | | [facility] [place] | [facility] [place] | [facility] | | | | | [facility] | [address] | for Health | | | | | | Phone: | and Healing, | | | | | | [phone] | [address], | | | | | | Fax: | 3rd Floor | | | | | | [phone] | [place], [place] | | | | | | | [address] | | | | | | | Phone: | | | | | | | [phone] | | | | | | | Fax: | | | | | | | [phone] | +--------+--------+ + + + + Reason for Visit Diagnostic Testing (Urgent) +--------+--------+ + + + + | Status | Reason | Specialty | Diagnoses / | Referred By | Referred To | | | | | Procedures | Contact | Contact | +--------+--------+ + + + + | Closed | | Radiology | Diagnoses | Hoagland, | Rad Mri | | | | | Diplopia | Anthony King, | [address] | | | | | Procedures | MD [address] | | | | | MRI BRAIN | [address] | Mailcode: | | | | | [facility] [place] | [place], [place] | [facility] | | | | | [facility] | [address] | for Health | | | | | | Phone: | and Healing, | | | | | | [phone] | [address], | | | | | | Fax: | 3rd Floor | | | | | | [phone] | [place], [place] | | | | | | | [address] | | | | | | | Phone: | | | | | | | [phone] | | | | | | | Fax: | | | | | | | [phone] | +--------+--------+ + + + + Encounter Details +--------+ + + + + | Date | Type | Department | Care Team | Description | +--------+ + + + + | 12/21/ | Hospital | Diagnostic Imaging | | | | 2015 | Encounter | [facility] at [facility] | | | | | | [address] | | | | | | Karolina Serrano Mailcode: | | | | | | [address] | | | | | | [facility] | | | | | | [place], [place] | | | | | | [address] | | | | | | [phone] | | | +--------+ + + + [...] + + documented as of this encounter Medications at Time of Discharge + + + +---------+--------+ + | Medication | Sig | Dispensed | Refills | Start | End Date | | | | | | Date | | + + + +---------+--------+ + | (No Medication | | | 0 | | | | Selected) | | | | | | + + + +---------+--------+ + | busPIRone 30 mg | Take 30 mg by mouth | | 0 | | | | oral tablet | two times daily. | | | | | + + + +---------+--------+ + | clonazePAM 2 mg | Take 2 mg by mouth | | 0 | | | | oral tablet | three times daily. | | | | | + + + +---------+--------+ + | cloNIDine HCl 0.2 | Take 0.2 mg by mouth | | 0 | | | | mg oral tablet | two times daily. | | | | | + + + +---------+--------+ + | FLUoxetine 40 mg | Take 40 mg by mouth | | 0 | | | | oral capsule | once daily. | | | | | + + + +---------+--------+ + | methylphenidate 20 | Take 20 mg by mouth | | 0 | | | | mg oral tablet | two times daily. | | | | | + + + +---------+--------+ + | naproxen sodium | Take 220 mg by mouth | | 0 | | | | (ALEVE) 220 mg oral | as needed. | | | | | | capsule | | | | | | + + + +---------+--------+ + | promethazine 25 mg | Take 25 mg by mouth | | 0 | | | | oral tablet | as needed for | | | | | | | nausea/vomiting. | | | | | + + + +---------+--------+ + | testosterone | Inject into the | | 0 | | | | cypionate | muscle (IM) every | | | | | | (DEPO-TESTOSTERONE) | fourteen days. | | | | | | 200 mg/mL | | | | | | | intramuscular oil | | | | | | + + + +---------+--------+ + | testosterone | Inject 200 mg into | | 0 | | | | cypionate 200 mg/mL | the muscle (IM) | | | | | | intramuscular kit | every seven days. | | | | | + + + +---------+--------+ + | testosterone | Inject into the | | 0 | | | | cypionate 200 mg/mL | muscle (IM) every | | | | | | intramuscular oil | fourteen days. | | | | | + + + +---------+--------+ + | ziprasidone 60 mg | Take 60 mg by mouth | | 0 | | | | oral capsule | two times daily with | | | | | | | meals. | | | | | + + + +---------+--------+ + | zolpidem 10 mg | Take 10 mg by mouth | | 0 | | | | oral tablet | once daily at | | | | | | | bedtime as needed | | | | | | | for sleep. | | | | | + + + +---------+--------+ + documented as of this encounter Plan of Treatment Not on filedocumented as of this encounter Procedures + +--------+ + + + | Procedure Name | Priori | Date/Time | Associated Diagnosis | Comments | | | ty | | | | + +--------+ + + + | MR BRAIN [facility] [place] | Routin | 12/22/2015 | Diplopia | Results for this | | [facility] | e | 10:14 PM | | procedure are in the | | | | PDT | | results section. | + +--------+ + + + documented in this encounter Results MRI BRAIN [facility] [place] [...] | | | | | approval / LISA | | | | | | [facility] [...] | | + +---------+ + + | [facility] DEPARTMENT OF | | | | | RADIOLOGY | | | | + +---------+ + + documented in this encounter Visit Diagnoses + + | Diagnosis | + + | Diplopia | + + documented in this encounter"
--- OUTSIDE RECORDS SUMMARY | ~2019-01-17 | XMS | Encounter Summary ---
Demographics + + + | Address | [address] | | | [place] [address] | + + + | Home Phone | | + + + | Preferred Language | Unknown | + + + | Marital Status | Single | + + + | Druze Affiliation | 1013 | + + + | Race | Unknown | + + + | Ethnic Group | Unknown | + + + Author + + + | Author | [facility] | | | and [place] | + + + | Organization | [facility] | | | and [...] Team Providers + +------+ + | Care Bacon Skinner Name | Role | Phone | + +------+ + | Katharine Hernandez | PCP | | | PA | | | + +------+ + Encounter Details +--------+ + + + + | Date | Type | Department | Care Team | Description | +--------+ + + + + | 11/06/ | Orders Only | [facility] | Provider, | | | 2018 | | [facility] | Historical, MD [address] | | | | | [address] | [place]. | | | | | [place], [place] | [place] [address] | | | | | [address] | | | | | | [phone] | | | +--------+ + + + [...] | | | | | | [place] [address] | | | | | | [phone] | | | | | | | | +--------+---------+ + + + | 05/29/ | Office | Neurology | Lazaro Haynes MD | | | 2019 | Visit | | [address] | | | | | | [place] | | | | | | [phone] | | | | | | | | +--------+---------+ + + + documented as of this encounter Visit Diagnoses Not on filedocumented in this encounter"
--- OUTSIDE RECORDS SUMMARY | ~2019-01-17 | XMS | Clinical Summary ---
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 | | | Patient [...] | [employer] [facility] | MODA | [id number] | 04/04/19 | | | Medica | | | HEALTH | | 17-Pre | | | re | | | MDCR | | sent | | | | + +--------+ +--------+ +---------+--------+ | [employer] [facility] | MODA | [id number] | 04/04/19 | | | Medica | | | HEALTH | | 17-Pre | | | re | | | MDCR | | sent | | | | + +--------+ +--------+ +---------+--------+ | [employer] [facility] | MODA | [id number] | | | | Medica | | | HEALTH | | 018-Pr | | | re | | | MDCR | | esent | | | | + +--------+ +--------+ +---------+--------+ | [employer]AN | MODA | [id number] | 04/04/19 | [phone] | | Medica | | MEDICAID HMO | HEALTH | | 18-Pre | 1 | | id | | | MDCD | | sent | | | | | | [place] | | | | | | + +--------+ +--------+ +---------+--------+ | [employer] [facility]AN | MODA | [id number] | | [phone] | | Medica | | MEDICAID HMO | HEALTH | | 018-Pr | 1 | | id | | | MDCD | | esent | | | | | | [place]MO [place] | | | | | | + +--------+ +--------+ +---------+--------+ | [employer]AN | MODA | [id number] | | [phone] | | Medica | | MEDICAID HMO [...] | | | 1 (Home) | [place] [address] | + +--------+ +--------+ + + | Sajan Bray | Person | Self | [birth year] | | [address] | | | al/Fam | | 1966 | [phone] | [address] [place], | | | greg | | | 1 (Home) | [place] [address] | + +--------+ +--------+ + + | Sajan Bray | Mental | Self | [birth year] | | [address] | | | | | 1966 | [phone] | [address] [place], | | | Health | | | 1 (Home) | [place] [address] | + +--------+ +--------+ + + Advance Directives Patient has advance care planning documents on file. For more information, please contact:[facility] [address]
--- OUTSIDE RECORDS SUMMARY | ~2019-01-17 | XMS | Encounter Summary ---
Demographics + + + | Address | [address] | | | [place] [address] | + + + | Home Phone | | + + + | Preferred Language | Unknown | + + + | Marital Status | Single | + + + | Shinto Affiliation | Unknown | + + + | Race | White | + + + | Ethnic Group | Not or | + + + Author + + + | Author | [facility] | + + + | Organization | [facility] | + + + | Address | Unknown | + + + | Phone | Unavailable | + + + Support + + +---------+ + | Name | Relationship | Address | Phone | + + +---------+ + | Marianne Cabrera | ECON | Unknown | | + + +---------+ + Care Team Providers + +------+ + | Care Hcc Coders Name | Role | Phone | + [...] | | | | [place] | [facility] [place] | [facility] | | | | | [address] | [address] | for Health | | | | | | Phone: | and Healing, | | | | | | [phone] | Building 1, | | | | | | Fax: | 3rd Floor | | | | | | [phone] | [place], [place] | | | | | | | [address] | | | | | | | Phone: | | | | | | | [phone] | | | | | | | Fax: | | | | | | | [phone] | +--------+--------+ + + + + Reason [...] | Diplopia | DO Rafita | [address] | | | | | Other | [address] | [address] | | | | | subjective | [place], | Mailcode: | | | | | visual | [place] | [facility] | | | | | disturbances | [address] | [facility] | | | | | | Phone: | and Healing, | | | | | | [phone] | Building 1, | | | | | | Fax: | 11th Floor | | | | | | [phone] | [place], [place] | | | | | | | [address] | | | | | | | Phone: | | | | | | | [phone] | | | | | | | Fax: | | | | | | | [phone] | +--------+--------+ + + + + Encounter Details +--------+---------+ + + + | Date | Type | Department | Care Team | Description | +--------+---------+ + + + | 12/21/ | Office | [facility] | Anthony Peters, | Diplopia (Primary | | 2016 | Visit | [place] | MD [address] | Dx) | | | | Neuro-Ophthalmology | [place], [place] | | | | | at [facility] [address] | [address] | | | | | Ave Mailcode: [facility] | [phone] | | | | | [facility] | | | | | | and Healing, | | | | | | Building | | | | | | [place], [place] | | | | | | [address] | | | | | | [phone] | | | +--------+---------+ + + + [...] a 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 No spacing out. 1yr ago [...] Correction: Glasses Color Right Left [place] [facility] [place] - [place] 11/1110 Stereo Fly: + Animals: [...] Normal Normal Fundus Exam Right Left Disc [place], Flat [place], Flat C/D Ratio 0.3 0.3 Macula Normal [...] Physician, Dr. Anthony Peters. Pietro Maddox, PGY2 [facility] [place] [facility] I saw and examined the patient. I reviewed the patient s past medical, family and social history,current medications, allergies, and ROS documented by the aviation electrical technician. I reviewed an d agree with [...] Sajan's presenting neuro-ophthalmic signs/symptoms. Anthony Peters M.D. Teletray Operator Ophthalmology and Neurology Diplomate of Neurology, ABPN Neuro-ophthalmology service [facility] documented in this e ncounter Plan of [...] by | | | | | | [address] | | | | | | [facility] | | | | | | [address] | | | | | | [phone].Inmagic. | | | | | | Wayne [...] [facility] | [address] | [place], [place] | | | UNIV PTH - INTFC | | [address] | | + + + + + [...] | | | | | determined by [facility] | | | | | | Laboratories. See | | | | | | Compliance Statement B: | | | | | | Inmagic.com/CSPerformed | | | | | | by [address] | | | | | | [place] | | | | | | [address] | | | | | | [phone]. | | | | | | Wayne [...] [facility] | [address] | [place], [place] | | | UNIV PTH - INTFC | | [address] | | + + + + + [...] | [facility] | | | PEROXIDASE | [address] | | REG UNIV | | | AB | Sandhya Valente, [facility] [place] | | PTH - INTFC | | | | [address] | | | | | | [phone]. | | | | | | com, [...] [facility] | [address] | [place], [place] | | | UNIV PTH - INTFC | | [address] | | + + + + + [...] | | | | | | | [email or web address] | | | | | | 001Performed by [facility] | | | | | | Laboratories,April Watsoneta | | | | | | [place] [address] | | | | | | [phone].Gradwelluplab. | | | | | | Wanye lovelace, | | | | | | [...] [facility] | [address] | [place], [place] | | | UNIV PTH - INTFC | | [address] | | + + + + + [...] by | | | | | | [address] | | | | | | Sandhya Valente, [facility] [place] | | | | | | [address] | | | | | | [phone].[email or web address]. | | | | | | Wayne [...] [facility] | [address] | [place], [place] | | | UNIV PTH - INTFC | | [address] | | + + + + + [...] by | | | | | | [address] | | | | | | Sandhya Valente, [facility] | | | | | | [address] | | | | | | [phone].Inmagic. | | | | | | [place], [...] [facility] | [address] | [place], [place] | | | UNIV PTH - INTFC | | [address] | | + + + + + [...] B: | | | | | | Weizoom/CS | | | | + + + [...] B: | | | | | | Gradwelluplab.com/CSPerformed | | | | | | by [facility],[address] | | | | | | [place] | | | | | | [address] | | | | | | [phone].aruplab. | | | | | | Wayne [...] [facility] | [address] | [place], [place] | | | UNIV PTH - INTFC | | [address] | | + + + + + [...] | | | | | determined by [facility] | | | | | | Laboratories. See | | | | | | Compliance Statement B: | | | | | | Inmagic.VasoNova/CSPerformed | | | | | | by [address] | | | | | | Sandhya Valente [facility] [place] | | | | | | [address] | | | | | | [phone].Inmagic. | | | | | | [facility], Wayne Nayak, | | | | | [...] [facility] | [address] | [place], [place] | | | UNIV PTH - INTFC | | [address] | | + + + + + [...] | | | (FRANCISCO J JULITA) | [address] | | REG UNIV | | | SERUM | Sandhya Valente, [facility] | | PTH - INTFC | | | | [address] | | | | | | [phone].aruplab. | | | | | | [place], [...] B: | | | | | | Inmagic.VasoNova/CS | | | | + + + + + + + + | Specimen | + + | Blood - Blood | + + + + + + + | Performing | Address | City/State/Zipcode | Phone Number | | Organization | | | | + + + + + | [facility] | [address] | [place], [place] | | | UNIV PTH - INTFC | | [address] | | + + + + + [...] [facility] | [address] | [place] [address] | | | RONNIE ODONNELL | ALEX [...] B: | | | | | | Weizoom/CSPerformed | | | | | | by [address] | | | | | | Sandhya Valente, [facility] | | | | | | [address] | | | | | | [phone].Inmagic. | | | | | | [facility], Wayne Nayak, | | | | | [...] [facility] | [address] | [place], [place] | | | UNIV PTH - INTFC | | [address] | | + + + + + documented in this encounter Visit Diagnoses + + | Diagnosis | + + | Diplopia - Primary | + + documented in this encounter
--- OUTSIDE RECORDS SUMMARY | ~2019-01-17 | XMS | Encounter Summary ---
Demographics + + + | Address | [address] | | | [place] [address] | + + + | Home Phone | | + + + | Preferred Language | Unknown | + + + | Marital Status | Single | + + + | Jainism Affiliation | Unknown | + + + | Race | White | + + + | Ethnic Group | Not or | + + + Author + + + | Author | [facility] | + + + | Organization | [facility] | + + + | Address | Unknown | + + + | Phone | Unavailable | + + + Support + + +---------+ + | Name | Relationship | Address | Phone | + + +---------+ + | Marianne Cabrera | ECON | Unknown | | + + +---------+ + Care Team Providers + +------+ + | Care Jewel Inspector Name | Role | Phone | + [...] | | | | Diplopia | Anthony Kign, | [address] | | | | | Procedures | MD [address] | [address] | | | | | MRI BRAIN | [address] | Mailcode: | | | | | [place] | [facility] [place] | [facility] | | | | | [address] | [address] | for Health | | | | | | Phone: | and Healing, | | | | | | [phone] | Building 1, | | | | | | Fax: | 3rd Floor | | | | | | [phone] | [place], [place] | | | | | | | [address] | | | | | | | Phone: | | | | | | | [phone] | | | | | | | Fax: | | | | | | | [phone] | +--------+--------+ + + + + Reason for Visit Diagnostic Testing (Urgent) +--------+--------+ + + + + | Status | Reason | Specialty | Diagnoses / | Referred By | Referred To | | | | | Procedures | Contact | Contact | +--------+--------+ + + + + | Closed | | Radiology | Diagnoses | [place], | Rad Mri | | | | | Diplopia | Anthony King, | [address] | | | | | Procedures | MD [address] | | | | | MRI BRAIN | [address] | Mailcode: | | | | | [place] | [place], [place] | [facility] | | | | | [address] | [address] | for Health | | | | | | Phone: | and Healing, | | | | | | [phone] | Building 1, | | | | | | Fax: | 3rd Floor | | | | | | [phone] | [place], [place] | | | | | | | [address] | | | | | | | Phone: | | | | | | | [phone] | | | | | | | Fax: | | | | | | | [phone] | +--------+--------+ + + + + Encounter Details +--------+ + + + + | Date | Type | Department | Care Team | Description | +--------+ + + + + | 12/21/ | Hospital | Diagnostic Imaging | | | | 2015 | Encounter | Services at [facility] | | | | | | [address] | | | | | | Karolina Serrano Mailcode: | | | | | | [address] | | | | | | [facility] | | | | | | [place], [place] | | | | | | [address] | | | | | | [phone] | | | +--------+ + + + [...] | | + +---------+ + + | [facility] DEPARTMENT OF | | | | | RADIOLOGY | | | | + +---------+ + + documented in this encounter Visit Diagnoses + + | Diagnosis | + + | Diplopia | + + documented in this encounter"
--- OUTSIDE RECORDS SUMMARY | ~2019-01-17 | XMS | Clinical Summary ---
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 | | | Patient [...] | [employer] [facility] | MODA | [id number] | 04/04/19 | | | Medica | | | HEALTH | | 17-Pre | | | re | | | MDCR | | sent | | | | + +--------+ +--------+ +---------+--------+ | [employer] [facility] | MODA | [id number] | 04/04/19 | | | Medica | | | HEALTH | | 17-Pre | | | re | | | MDCR | | sent | | | | + +--------+ +--------+ +---------+--------+ | [employer] | MODA | [id number] | | | | Medica | | | HEALTH | | 018-Pr | | | re | | | MDCR | | esent | | | | + +--------+ +--------+ +---------+--------+ | [employer]AN | MODA | [id number] | 04/04/19 | [phone] | | Medica | | MEDICAID HMO | HEALTH | | 18-Pre | 1 | | id | | | MDCD | | sent | | | | | | [place]MO [place] | | | | | | + +--------+ +--------+ +---------+--------+ | [employer]AN | MODA | [id number] | | [phone] | | Medica | | MEDICAID HMO | HEALTH | | 018-Pr | 1 | | id | | | MDCD | | esent | | | | | | [place]MO [place] | | | | | | + +--------+ +--------+ +---------+--------+ | [employer] PLAN | MODA | [id number] | | [phone] | | Medica | | MEDICAID HMO [...] | | | 1 (Home) | [place] [address] | + +--------+ +--------+ + + | Sajan Bray | Person | Self | [birth year] | | [address] | | | al/Fam | | 1966 | [phone] | [address] [place], | | | greg | | | 1 (Home) | [place] [address] | + +--------+ +--------+ + + | Sajan Bray | Mental | Self | [birth year] | | [address] | | | | | 1966 | [phone] | [address] [place], | | | Health | | | 1 (Home) | [place] [address] | + +--------+ +--------+ + + Advance Directives Patient has advance care planning documents on file. For more information, please contact:[facility] [place] [address]
--- OUTSIDE RECORDS SUMMARY | ~2019-01-17 | XMS | Encounter Summary ---
Demographics + + + | Address | [address] | | | [place] [address] | + + + | Home Phone | | + + + | Preferred Language | Unknown | + + + | Marital Status | Single | + + + | Evangelical Affiliation | 1013 | + + + | Race | Unknown | + + + | Ethnic Group | Unknown | + + + Author + + + | Author | [facility] | | | and [place] | + + + | Organization | [facility] | | [...] Team Providers + +------+ + | Care Substation Wireman Name | Role | Phone | + +------+ + | Katharine Hernandez | PCP | | | PA | | | + +------+ + Reason for Visit + + + | Reason | Comments | + + + | Procedure | Neurotrax | + + + Encounter Details +--------+ + + + + | Date | Type | Department | Care Team | Description | +--------+ + + + + | 10/31/ | Procedure | [facility] | Geovanna, | Traumatic brain | | 2019 | visit | [facility] | [address] | injury, with loss of | | | | CLINIC [address] [place], | consciousness of 30 | | | | [address] [place], | [place] [address] | minutes or less, | | | | [place] [address] | [phone] | sequela (HCC) | | | | [phone] | | (Primary Dx) | | | | | Lazaro Haynes MD | | | | | | [address] | | | | | | [place], [place] | | | | | | [address] | | | | | | | | +--------+ + [...] | 03/22/ | Office | Neurology | Geovanna | | | 2018 | Visit | | [address] | | | | | | [address] [place], | | | | | | [place] [address] | | | | | | [phone] | | | | | | | | +--------+---------+ + + + | 05/29/ | Office | Neurology | Lazaro Haynes MD | | | 2019 | Visit | | [address] | | | | | | [place], [place] | | | | | | [address] | | | | | | | | +--------+---------+ + + + documented as of this encounter Procedures + +--------+ [...] | | | | | | encounter ([facility]) | | | | | | Memory loss | | + +--------+ + + + documented in this encounter Visit Diagnoses + + | Diagnosis | + + | Traumatic brain injury, with loss of consciousness of 30 minutes or less, sequela | | ([facility]) - Primary | + + documented in this encounter"
--- OUTSIDE RECORDS SUMMARY | ~2019-01-17 | XMS | Encounter Summary ---
Demographics + + + | Address | [address] | | | [place] [address] | + + + | Home Phone | | + + + | Preferred Language | Unknown | + + + | Marital Status | Single | + + + | Church Affiliation | 1013 | + + + | Race | Unknown | + + + | Ethnic Group | Unknown | + + + Author + + + | Author | [facility] | | | and [place] | + + + | Organization | [facility] | | [...] Team Providers + +------+ + | Care Cisco Consultant Name | Role | Phone | + [...] | | [address] [place], | [place] [address] | minutes or less, | | | | [place] [address] | [phone] | sequela (HCC) | | | | [phone] | | (Primary Dx) | | | | | Lazaro Haynes MD | | | | | | [address] | | | | | | [place], [place] | | | | | | [address] | | | | | | | [...] | | | | | | [place] [address] | | | | | | [phone] | | | | | | | | +--------+---------+ + + + | 05/29/ | Office | Neurology | Lazaro Haynes MD | | | 2019 | Visit | | [address] | | | | | | [place], [place] | | | | | | [address] | | | | | | | [...] | | | | | | encounter ([facility]) | | | | | | Memory loss | | + +--------+ + + + documented in this encounter Visit Diagnoses + + | Diagnosis | + + | Traumatic brain injury, with loss of consciousness of 30 minutes or less, sequela | | ([facility]) - Primary | + + documented in this encounter"
--- OUTSIDE RECORDS SUMMARY | ~2019-01-17 | XMS | Clinical Summary ---
Demographics + + + | Address | [address] | | | [place] [address] | + + + | Home Phone | | + + + | Preferred Language | Unknown | + + + | Marital Status | Single | + + + | Hoahaoism Affiliation | Unknown | + + + | Race | White | + + + | Ethnic Group | Not or | + + + Author + + + | Author | [facility] | + + + | Organization | [facility] | + + + | Address | Unknown | + + + | Phone | Unavailable | + + + Support + + +---------+ + | Name | Relationship | Address | Phone | + + +---------+ + | Marianne Cabrera | ECON | Unknown | | + + +---------+ + Care Team Providers + +------+ + | Care Gear Finisher Name | Role | Phone | + +------+ + | Rafita Manning DO | PCP | | + +------+ + Source Comments [facility] is fully live on both [facility] and [facility] In[facility] Allergies + + + + [...] | | | + +--------+ +--------+-------+---------+--------+ | OPERATIONAL RISK ANALYST MEDICAID | OPERATIONAL RISK ANALYST | xxxxxxxx | | | | Medica [...] greg | | | 0 (Home) | [address] | + +--------+ +--------+ + +"
--- OUTSIDE RECORDS SUMMARY | ~2019-01-17 | XMS | Clinical Summary ---
Demographics + + + | Address | [address] | | | [place] [address] | + + + | Home Phone | | + + + | Preferred Language | Unknown | + + + | Marital Status | Single | + + + | Moravian Affiliation | Unknown | + + + | Race | White | + + + | Ethnic Group | Not or | + + + Author + + + | Author | [facility] | + + + | Organization | [facility] | + + + | Address | Unknown | + + + | Phone | Unavailable | + + + Support + + +---------+ + | Name | Relationship | Address | Phone | + + +---------+ + | Marianne Cabrera | ECON | Unknown | | + + +---------+ + Care Team Providers + +------+ + | Care Mold Cooler Name | Role | Phone | + +------+ + | Rafita Manning DO | PCP | | + +------+ + Source Comments TAO is fully live on both [facility] and [facility] In[facility] Allergies + + + + + + [...] | | | + +--------+ +--------+-------+---------+--------+ | CHIEF NURSE ANESTHETIST MEDICAID | CHIEF NURSE ANESTHETIST | xxxxxxxx | | | | Medica [...] greg | | | 0 (Home) | [address] | + +--------+ +--------+ + +"
--- OUTSIDE RECORDS SUMMARY | ~2019-01-17 | XMS | Clinical Summary ---
Demographics + + + | Address | [address] | | | [place] [address] | + + + | Home Phone | | + + + | Preferred Language | Unknown | + + + | Marital Status | Single | + + + | Orthodoxy Affiliation | 1013 | + + + | Race | Unknown | + + + | Ethnic Group | Unknown | + + + Author + + + | Author | [facility] (Historical as of | | | 11-18-18) | + + + | Organization | [facility] (Historical as of | | | 11-18-18) [...] Team Providers + +------+ + | Care Solar Field Installation Crew Member Name | Role | Phone | + [...] | | | | encounter ([facility]) | | | | | [...] | | | | encounter ([facility]) | | | | | [...] | Mother | | Alive | in [place] | + +------+--------+ + Social History + [...] [place] - MOD[place] | [place] - | [id number] | Medica | | | | | [...] +--------+-------+ + | MEDICAID | [place] | [id number] | | | [address] | | | N | | | | [place], [place] | | | [place] | | | | [address] | | | WINDROWER OPERATOR | | | | | + [...] greg | | | [address] | [place] [address] | + +--------+ +--------+ + + | SAJAN GARCIA | Worker | Self | [birth year] | Home: | [address] | | | s Comp | | 1966 | [phone] | [address] [place], | | | | | | [address] | [place] [address] | + +--------+ +--------+ + +
--- OUTSIDE RECORDS SUMMARY | ~2019-01-17 | XMS | Encounter Summary ---
Demographics + + + | Address | [address] | | | [place] [address] | + + + | Home Phone [...] Author + + + | Author | [facility] | + + + | Organization | [facility] | + + + | Address | Unknown | + + + | Phone | Unavailable | + + + Support + + +---------+ + | Name | Relationship | Address | Phone | + + +---------+ + | Marianne Cabrera | ECON | Unknown | | + + +---------+ + Care Team Providers + +------+ + | Care Legal Investigator Name | Role | Phone | + [...] | | | | [place] | [facility] [place] | [facility] | | | | | [address] | [address] | for Health | | | | | | Phone: | and Healing, | | | | | | [phone] | Building 1, | | | | | | Fax: | 3rd Floor | | | | | | [phone] | [place], [place] | | | | | | | [address] | | | | | | | Phone: | | | | | | | [phone] | | | | | | | Fax: | | | | | | | [phone] | +--------+--------+ + + + + Reason [...] | | | | | disturbances | [address] | [facility] | | | | | | Phone: | and Healing, | | | | | | [phone] | Building 1, | | | | | | Fax: | 11th Floor | | | | | | [phone] | [place], [place] | | | | | | | [address] | | | | | | | Phone: | | | | | | | [phone] | | | | | | | Fax: | | | | | | | [phone] | +--------+--------+ + + + + Encounter Details +--------+---------+ + + + | Date | Type | Department | Care Team | Description | +--------+---------+ + + + | 12/21/ | Office | [facility] | Anthony Peters, | Diplopia (Primary | | 2016 | Visit | [place] | MD [address] | Dx) | | | | Neuro-Ophthalmology | [place], [place] | | | | | at [facility] [address] | [address] | | | | | Ave Mailcode: [facility] | [phone] | | | | | [facility] | | | | | | and Healing, | | | | | | Building | | | | | | [place], [place] | | | | | | [address] | | | | | | [phone] | | | +--------+---------+ + + + [...] 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 No spacing out. [...] Correction: Glasses Color Right Left [place] - [place] - Rittler 11/1110 Stereo Fly: + Animals: [...] Normal Normal Fundus Exam Right Left Disc Haughton, Flat Haughton, Flat C/D Ratio 0.3 0.3 Macula Normal [...] Physician, Dr. Anthony Peters. Pietro Maddox, PGY2 [facility] [place] I saw and examined the patient. I reviewed the patient s past medical, family and social history,current medications, allergies, and ROS documented by the project technician. I reviewed an d agree with [...] Sajan's presenting neuro-ophthalmic signs/symptoms. Anthony Peters M.D. Soda Tester Ophthalmology and Neurology Diplomate of Neurology, ABPN Neuro-ophthalmology service [facility] documented in this e ncounter Plan of [...] by | | | | | | YuuConnect,[address] | | | | | | [facility] | | | | | | [address] | | | | | | [phone].WeatherBug. | | | | | | Wayne [...] [facility] | [address] | [place], [place] | | | UNIV PTH - INTFC | | [address] | | + + + + + [...] | | | | | determined by [facility] | | | | | | Laboratories. See | | | | | | Compliance Statement B: | | | | | | WeatherBug.com/CSPerformed | | | | | | by YuuConnect,[address] | | | | | | [place] | | | | | | [address] | | | | | | [phone].Refined Investment Technologieslab. | | | | | | Wayne [...] [facility] | [address] | [place], [place] | | | UNIV PTH - INTFC | | [address] | | + + + + + [...] | [facility] | | | PEROXIDASE | YuuConnect,[address] | | REG UNIV | | | AB | Sandhya Valente, [facility],[place] | | PTH - INTFC | | | | [address] | | | | | | [phone].Refined Investment Technologieslab. | | | | | | com, [...] [facility] | [address] | [place], [place] | | | UNIV PTH - INTFC | | [address] | | + + + + + [...] | | | | | | | [email or web address] Job/[email or web address] | | | | | | 001Performed by [facility] | | | | | | Laboratories,April [address] | | | | | | [place] [address] | | | | | | [phone].FAST FELTuplab. | | | | | | Wayne [...] [facility] | [address] | [place], [place] | | | UNIV PTH - INTFC | | [address] | | + + + + + [...] by | | | | | | YuuConnect,[address] | | | | | | Sandhya Valente, [facility],[place] | | | | | | [address] | | | | | | [phone].Refined Investment Technologieslab. | | | | | | Wayne [...] [facility] | [address] | [place], [place] | | | UNIV PTH - INTFC | | [address] | | + + + + + [...] by | | | | | | YuuConnect,[address] | | | | | | Sandhya Valente, [facility],[place] | | | | | | [address] | | | | | | [phone].WeatherBug. | | | | | | [place], [...] [facility] | [address] | [place], [place] | | | UNIV PTH - INTFC | | [address] | | + + + + + [...] B: | | | | | | CelluFuel/CS | | | | + + + [...] B: | | | | | | FAST FELTuplab.com/CSPerformed | | | | | | by [facility],[address] | | | | | | [place] | | | | | | [address] | | | | | | [phone].aruplab. | | | | | | Wayne [...] [facility] | [address] | [place], [place] | | | UNIV PTH - INTFC | | [address] | | + + + + + [...] | | | | | determined by [facility] | | | | | | Laboratories. See | | | | | | Compliance Statement B: | | | | | | WeatherBug.Campus Job/CSPerformed | | | | | | by YuuConnect,[address] | | | | | | Sandhya Valente [facility],[place] | | | | | | [address] | | | | | | [phone].WeatherBug. | | | | | | [facility], [place] Nayak, | | | [...] [facility] | [address] | [place], [place] | | | UNIV PTH - INTFC | | [address] | | + + + + + [...] | | | (FRANCISCO J JULITA) | ARAttenex,[address] | | REG UNIV | | | SERUM | Sandhya Valente, [facility],[place] | | PTH - INTFC | | | | [address] | | | | | | [phone].aruplab. | | | | | | [place], [...] B: | | | | | | WeatherBug.Campus Job/CS | | | | + + + + + + + + | Specimen | + + | Blood - Blood | + + + + + + + | Performing | Address | City/State/Zipcode | Phone Number | | Organization | | | | + + + + + | [facility] | [address] | [place], [place] | | | UNIV PTH - INTFC | | [address] | | + + + + + [...] [facility] | [address] | [place] [address] | | | RONNIE ODONNELL | ALEX [...] B: | | | | | | CelluFuel/CSPerformed | | | | | | by YuuConnect,[address] | | | | | | Sandhya Valente, [facility],[place] | | | | | | [address] | | | | | | [phone].WeatherBug. | | | | | | [facility], [place] Nayak, | | | [...] [facility] | [address] | [place], [place] | | | UNIV PTH - INTFC | | [address] | | + + + + + documented in this encounter Visit Diagnoses + + | Diagnosis | + + | Diplopia - Primary | + + documented in this encounter
--- OUTSIDE RECORDS SUMMARY | ~2019-01-17 | XMS | Encounter Summary ---
Demographics + + + | Address | [address] | | | [place] [address] | + + + | Home Phone | | + + + | Preferred Language | Unknown | + + + | Marital Status | Single | + + + | Mormonism Affiliation | 1013 | + + + | Race | Unknown | + + + | Ethnic Group | Unknown | + + + Author + + + | Author | [facility] | | | and [place] | + + + | Organization | [facility] | | | [...] Team Providers + +------+ + | Care Marine Equipment Sales Engineer Name | Role | Phone | + [...] | | [address] [place], | [place] [address] | minutes or less, | | | | [place] [address] | [phone] | sequela (HCC) | | | | [phone] | | (Primary Dx) | | | | | Lazaro Haynes MD | | | | | | [address] | | | | | | [place], [place] | | | | | | [address] | | | | | | | [...] | | | | | | [place] [address] | | | | | | [phone] | | | | | | | | +--------+---------+ + + + | 05/29/ | Office | Neurology | Lazaro Haynes MD | | | 2019 | Visit | | [address] | | | | | | [place], [place] | | | | | | [address] | | | | | | | [...] | | | | | | encounter ([facility]) | | | | | | Memory loss | | + +--------+ + + + documented in this encounter Visit Diagnoses + + | Diagnosis | + + | Traumatic brain injury, with loss of consciousness of 30 minutes or less, sequela | | ([facility]) - Primary | + + documented in this encounter"
--- OUTSIDE RECORDS SUMMARY | ~2019-01-17 | XMS | Encounter Summary ---
Demographics + + + | Address | [address] | | | [place] [address] | + + + | Home Phone | | + + + | Preferred Language | Unknown | + + + | Marital Status | Single | + + + | Restoration Affiliation | 1013 | + + + | Race | Unknown | + + + | Ethnic Group | Unknown | + + + Author + + + | Author | [facility] | | | and [place] | + + + | Organization | [facility] | | | [...] Team Providers + +------+ + | Care Line Lead Name | Role | Phone | + [...] [address] | | | | | [place] [address] | | | | | | [phone] | | | +--------+ + + + [...] | | | | | | [place] [address] | | | | | | [phone] | | | | | | | [...]
--- OUTSIDE RECORDS SUMMARY | ~2019-01-17 | XMS | Encounter Summary ---
Demographics + + + | Address | [address] | | | [place] [address] | + + + | Home Phone | | + + + | Preferred Language | Unknown | + + + | Marital Status | Single | + + + | Orthodox Affiliation | Unknown | + + + | Race | White | + + + | Ethnic Group | Not or | + + + Author + + + | Author | [facility] | + + + | Organization | [facility] | + + + | Address | Unknown | + + + | Phone | Unavailable | + + + Support + + +---------+ + | Name | Relationship | Address | Phone | + + +---------+ + | Marianne Cabrera | ECON | Unknown | | + + +---------+ + Care Team Providers + +------+ + | Care Natural Sciences Manager Name | Role | Phone | + [...] | | | | [place] | [facility] [place] | [facility] | | | | | [address] | [address] | for Health | | | | | | Phone: | and Healing, | | | | | | [phone] | Building 1, | | | | | | Fax: | 3rd Floor | | | | | | [phone] | [place], [place] | | | | | | | [address] | | | | | | | Phone: | | | | | | | [phone] | | | | | | | Fax: | | | | | | | [phone] | +--------+--------+ + + + + Reason for Visit Diagnostic Testing (Urgent) +--------+--------+ + + + + | Status | Reason | Specialty | Diagnoses / | Referred By | Referred To | | | | | Procedures | Contact | Contact | +--------+--------+ + + + + | Closed | | Radiology | Diagnoses | [place], | Rad Mri | | | | | Diplopia | Anthony King, | [address] | | | | | Procedures | MD [address] | | | | | MRI BRAIN | [address] | Mailcode: | | | | | [place] | [place], [place] | [facility] | | | | | [address] | [address] | for Health | | | | | | Phone: | and Healing, | | | | | | [phone] | Building 1, | | | | | | Fax: | 3rd Floor | | | | | | [phone] | [place], [place] | | | | | | | [address] | | | | | | | Phone: | | | | | | | [phone] | | | | | | | Fax: | | | | | | | [phone] | +--------+--------+ + + + + Encounter Details +--------+ + + + + | Date | Type | Department | Care Team | Description | +--------+ + + + + | 12/21/ | Hospital | Diagnostic Imaging | | | | 2015 | Encounter | Services at [facility] | | | | | | [address] | | | | | | Karolina Serrano Mailcode: | | | | | | [address] | | | | | | [facility] | | | | | | [place], [place] | | | | | | [address] | | | | | | [phone] | | | +--------+ + + + [...] | | + +---------+ + + | [facility] DEPARTMENT OF | | | | | RADIOLOGY | | | | + +---------+ + + documented in this encounter Visit Diagnoses + + | Diagnosis | + + | Diplopia | + + documented in this encounter"
--- OUTSIDE RECORDS SUMMARY | ~2019-01-17 | XMS | Encounter Summary ---
Demographics + + + | Address | [address] | | | [place] [address] | + + + | Home Phone | | + + + | Preferred Language | Unknown | + + + | Marital Status | Single | + + + | Yarsanism Affiliation | Unknown | + + + | Race | White | + + + | Ethnic Group | Not or | + + + Author + + + | Author | [facility] | + + + | Organization | [facility] | + + + | Address | Unknown | + + + | Phone | Unavailable | + + + Support + + +---------+ + | Name | Relationship | Address | Phone | + + +---------+ + | Marianne Cabrera | ECON | Unknown | | + + +---------+ + Care Team Providers + +------+ + | Care Ingot Weigher Name | Role | Phone | + +------+ + | Rafita Manning DO | PCP | | + +------+ + Encounter Details +--------+------+ + + + | Date | Type | Department | Care Team | Description | +--------+------+ + + + | 12/21/ | Lab | Laboratory at [facility] | | Diplopia | | 2016 | | [address] | | | | | | [place], [place] | | | | | | [address] | | | | | | [phone] | | | +--------+------+ + + + [...] by | | | | | | [address] | | | | | | Sandhya Camilo, [facility],[place] | | | | | | [address] | | | | | | [phone].Mandiclab. | | | | | | [facility], [place] Nayak, | | | [...] [facility] | [address] | [place], [place] | | | UNIV PTH - INTFC | | [address] | | + + + + + [...] | | | | | determined by [facility] | | | | | | Laboratories. See | | | | | | Compliance Statement B: | | | | | | TRUSTe/CSPerformed | | | | | | by [address] | | | | | | [place]ilo, [facility],[place] | | | | | | [address] | | | | | | [phone].[email or web address]. | | | | | | [facility], [place] Nayak, | | | [...] [address] [facility] | [place], [place] | | | UNIV PTH - INTFC | | [address] | | + + + + + [...] | [facility] | | | PEROXIDASE | [facility],[address] | | REG UNIV | | | AB | [address]hya Camilo, [facility],[place] | | PTH - INTFC | | | | [address] | | | | | | [phone].aruplab. | | | | | | Wayne [...] [facility] | [address] | [place], [place] | | | UNIV PTH - INTFC | | [address] | | + + + + + [...] | | | | | | | [email or web address] | | | | | | 001Performed by [facility] | | | | | | [facility],[address] | | | | | | [place], [place] [address] | | | | | | [phone].Mandiclab. | | | | | | [facility], | | | | | | , [...] [facility] | [address] | [place], [place] | | | UNIV PTH - INTFC | | [address] | | + + + + + [...] by | | | | | | [address] | | | | | | Sandhya [facility], [facility],[place] | | | | | | [address] | | | | | | [phone].[email or web address]. | | | | | | Wayne [...] [facility] | [address] | [place], [place] | | | UNIV PTH - INTFC | | [address] | | + + + + + [...] by | | | | | | [facility],[address] | | | | | | [address]ilo, [facility],[place] | | | | | | [address] | | | | | | [phone].Mandiclab. | | | | | | Wayne [...] [facility] | [address] | [place], [place] | | | UNIV PTH - INTFC | | [address] | | + + + + + [...] B: | | | | | | FirstCry.com.TuneCore/CS | | | | + + + [...] | | | | | determined by [facility] | | | | | | Laboratories. See | | | | | | Compliance Statement B: | | | | | | FirstCry.com.TuneCore/CSPerformed | | | | | | by [address] | | | | | | [facility],[place] | | | | | | [address] | | | | | | [phone].Mandiclab. | | | | | | [facility], Wayne Naayk, | | | | | | Mariana PEDROZA. Director | | | | + + + + + + + + | Specimen | + + | Blood - Blood | + + + + + + + | Performing | Address | City/State/[facility] Centercode | Phone Number | | Organization | | | | + + + + + | [facility] | [address] | [place], [place] | | | UNIV PTH - INTFC | | [address] | | + + + + + [...] | | | | | determined by [facility] | | | | | | Laboratories. See | | | | | | Compliance Statement B: | | | | | | FirstCry.com.TuneCore/CSPerformed | | | | | | by [address] | | | | | | [facility] [place] | | | | | | [address] | | | | | | [phone].Mandiclab. | | | | | | com, [...] [facility] | [address] | [place], [place] | | | UNIV PTH - INTFC | | [address] | | + + + + + [...] | | | (FRANCISCO J JULITA) | [facility],[address] | | REG UNIV | | | SERUM | [address]hy[address] Camilo, [facility],[place] | | PTH - INTFC | | | | [address] | | | | | | [phone].Mandiclab. | | | | | | Wayne [...] B: | | | | | | TRUSTe/CS | | | | + + + + + + + + | Specimen | + + | Blood - Blood | + + + + + + + | Performing | Address | City/State/Zipcode | Phone Number | | Organization | | | | + + + + + | [facility] | [address] | [place], [place] | | | UNIV PTH - INTFC | | [address] | | + + + + + [...] | + + + + + | [facility] | [address] | [place] [address] | | | SERVICES, CORE | ALEX [...] | | | | | determined by [facility] | | | | | | Laboratories. See | | | | | | Compliance Statement B: | | | | | | FirstCry.com.TuneCore/CSPerformed | | | | | | by [address] | | | | | | [facility] | | | | | | [address] | | | | | | [phone].[email or web address]. | | | | | | com, [...] [facility] | [address] | [place], [place] | | | UNIV PTH - INTFC | | [address] | | + + + + + documented in this encounter Visit Diagnoses + + | Diagnosis | + + | Diplopia | + + documented in this encounter"
--- OUTSIDE RECORDS SUMMARY | ~2019-01-17 | XMS | Encounter Summary ---
Demographics + + + | Address | [address] | | | [place] [address] | + + + | Home Phone | | + + + | Preferred Language | Unknown | + + + | Marital Status | Single | + + + | Denominational Affiliation | 1013 | + + + | Race | Unknown | + + + | Ethnic Group | Unknown | + + + Author + + + | Author | [facility] | | | and [place] | + + + | Organization | [facility] | | | [...] Providers + +------+ + | Care Legal Advisor Name | Role | Phone | + [...] [address] | | | | | [place] [address] | | | | | | [phone] | | | +--------+ + + + [...] | | | | | | [place] [address] | | | | | | [phone] | | | | | | | [...]
--- OUTSIDE RECORDS SUMMARY | ~2019-01-17 | XMS | Encounter Summary ---
Demographics + + + | Address | [address] | | | [place] [address] | + + + | Home Phone | | + + + | Preferred Language | Unknown | + + + | Marital Status | Single | + + + | Jain Affiliation | 1013 | + + + | Race | Unknown | + + + | Ethnic Group | Unknown | + + + Author + + + | Author | [facility] | | | and [place] | + + + | Organization | [facility] | | | and [...] Team Providers + +------+ + | Care Spreader Box Operator Name | Role | Phone | + +------+ + | Katharine Hernandez | PCP | | | PA | | | + +------+ + Encounter Details +--------+ + + + + | Date | Type | Department | Care Team | Description | +--------+ + + + + | 11/06/ | Orders Only | [facility] | Provider, | | | 2018 | | [facility] | Historical, MD [address] | | | | | [address] | [address]. | | | | | [place], [place] | [place] [address] | | | | | [address] | | | | | | [phone] | | | +--------+ + + + [...] | | | | | | [place] [address] | | | | | | [phone] | | | | | | | | +--------+---------+ + + + | 05/29/ | Office | Neurology | Lazaro Haynes MD | | | 2019 | Visit | | [address] | | | | | | [place] | | | | | | [id number] | | | | | | | | +--------+---------+ + + + documented as of this encounter Visit Diagnoses Not on filedocumented in this encounter"
--- OUTSIDE RECORDS SUMMARY | ~2019-01-17 | XMS | Encounter Summary ---
Demographics + + + | Address | [address] | | | [place] [address] | + + + | Home Phone | | + + + | Preferred Language | Unknown | + + + | Marital Status | Single | + + + | Bahai Affiliation | Unknown | + + + | Race | White | + + + | Ethnic Group | Not or | + + + Author + + + | Author | [facility] | + + + | Organization | [facility] | + + + | Address | Unknown | + + + | Phone | Unavailable | + + + Support + + +---------+ + | Name | Relationship | Address | Phone | + + +---------+ + | Marianne Cabrera | ECON | Unknown | | + + +---------+ + Care Team Providers + +------+ + | Care Western Philosophy Professor Name | Role | Phone | + +------+ + | Rfaita Manning DO | PCP | | + +------+ + Encounter Details +--------+------+ + + + | Date | Type | Department | Care Team | Description | +--------+------+ + + + | 12/21/ | Lab | Laboratory at [facility] | | Diplopia | | 2016 | | [address] | | | | | | [place], [place] | | | | | | [address] | | | | | | [phone] | | | +--------+------+ + + + [...] by | | | | | | [employer],[address] | | | | | | [address], [facility] | | | | | | [address] | | | | | | [phone].[employer]. | | | | | | [facility], Wayne Nayak, | | | [...] [facility] | [address] | [place], [place] | | | UNIV PTH - INTFC | | [address] | | + + + + + [...] | | | | | determined by [employer] | | | | | | Laboratories. See | | | | | | Compliance Statement B: | | | | | | Celleration/CSPerformed | | | | | | by [employer],[address] | | | | | | [address], [facility] | | | | | | [address] | | | | | | [phone].[employer]. | | | | | | [facility], [place] Nayak, | | | [...] + + | [facility] | [address] [facility] | [place], [place] | | | UNIV PTH - INTFC | | [address] | | + + + + + [...] | [facility] | | | PEROXIDASE | [facility],[address] | | REG UNIV | | | AB | [address]ilo, [facility] | | PTH - INTFC | | | | [address] | | | | | | [phone].[employer]plab. | | | | | | Wayne [...] [facility] | [address] | [place], [place] | | | UNIV PTH - INTFC | | [address] | | + + + + + [...] | | | | | | | [email or web address] | | | | | | 001Performed by [facility] | | | | | | [facility],[address] | | | | | | [place], [place] [address] | | | | | | [phone].[employer]. | | | | | | [facility], | | | | | [...] [facility] | [address] | [place], [place] | | | UNIV PTH - INTFC | | [address] | | + + + + + [...] by | | | | | | [employer],[address] | | | | | | Sandhya [facility], [facility] | | | | | | [address] | | | | | | [phone].[employer]. | | | | | | Wayne [...] [facility] | [address] | [place], [place] | | | UNIV PTH - INTFC | | [address] | | + + + + + [...] | | | | (MARCI), IgG by YNANI MARCI | | | | | | [...] by | | | | | | [facility],[address] | | | | | | [address], [facility] | | | | | | [address] | | | | | | [phone].[employer]. | | | | | | Wayne [...] [facility] | [address] | [place], [place] | | | UNIV PTH - INTFC | | [address] | | + + + + + [...] B: | | | | | | [employer].Tier 1 Performance/CS | | | | + + + [...] | | | | | determined by [employer] | | | | | | Laboratories. See | | | | | | Compliance Statement B: | | | | | | [employer].Tier 1 Performance/CSPerformed | | | | | | by [employer],[address] | | | | | | [facility] | | | | | | [address] | | | | | | [phone].[employer]. | | | | | | [facility], [place] Nayak, | | | | | | Mariana PEDROZA. Director | | | | + + + + + + + + | Specimen | + + | Blood - Blood | + + + + + + + | Performing | Address | City/State/[facility] | Phone Number | | Organization | | | | + + + + + | [facility] | [address] | [place], [place] | | | UNIV PTH - INTFC | | [address] | | + + + + + [...] | | | | | determined by [facility] | | | | | | Laboratories. See | | | | | | Compliance Statement B: | | | | | | [employer].Tier 1 Performance/CSPerformed | | | | | | by [employer],[address] | | | | | | [facility],[place] | | | | | | [address] | | | | | | [phone].[employer]. | | | | | | com, [...] [facility] | [address] | [place], [place] | | | UNIV PTH - INTFC | | [address] | | + + + + + [...] | | | (FRANCISCO J JULITA) | [facility],[address] | | REG UNIV | | | SERUM | [address], [facility] | | PTH - INTFC | | | | [address] | | | | | | [phone].[employer]. | | | | | | Wayne [...] B: | | | | | | Celleration/CS | | | | + + + + + + + + | Specimen | + + | Blood - Blood | + + + + + + + | Performing | Address | City/State/Zipcode | Phone Number | | Organization | | | | + + + + + | [facility] | [address] | [place], [place] | | | UNIV PTH - INTFC | | [address] | | + + + + + [...] | + + + + + | [facility] | [address] | [place] [address] | | | SERVICES, CORE | ALEX [...] | | | | | determined by [facility] | | | | | | Laboratories. See | | | | | | Compliance Statement B: | | | | | | [employer].Tier 1 Performance/CSPerformed | | | | | | by [employer],[address] | | | | | | [facility],[place] | | | | | | [address] | | | | | | [phone].[employer]. | | | | | | com, Wanye Nayak, | | | | | | [...] [facility] | [address] | [place], [place] | | | UNIV PTH - INTFC | | [address] | | + + + + + documented in this encounter Visit Diagnoses + + | Diagnosis | + + | Diplopia | + + documented in this encounter"
[~2019-01-17 09:16] MED LIST changes: +BUSPIRONE HCL15 MG PO; +CARAFATE1 GM PO; +CATAPRES0.2 MG PO; +FAMOTIDINE20 MG PO; +FLUVOXAMINE MA100 MG PO; +GABAPENTIN300 MG PO; +LATUDA60 MG PO; +NEURONTIN300 MG PO; +SEROQUEL400 MG PO; +XANAX2 MG PO
--- OUTSIDE RECORDS SUMMARY | 2019-01-17 09:20 | XMS ---
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 Dannielle VISIT COUNT (12 MO.) 2 TRIP Basurto TOTAL 2 NOTE: Visits indicate total known visits. ED/UCC VISIT TRACKING (12 MO.) 01/17/2019 09:17 [facility] [place] TYPE: Emergency COMPLAINT: - MENTAL STATUS CHANGE 11/22/2018 11:37 [facility] [place] TYPE: Emergency COMPLAINT: - ABDOMINAL PAIN DIAGNOSES: - Nicotine dependence, unspecified, uncomplicated - Allergy status to other antibiotic agents status - Left upper quadrant pain - Other shelter (current) drug therapy - Constipation, unspecified - Allergy status to oth drug/meds/biol subst status INPATIENT VISIT TRACKING (12 MO.) No inpatient visits to display in this time frame [id number]
[2019-01-17] MEDS ORDERED: TESTOSTERO200 MG/1 M IM (09:52)
--- NOTE | 2019-01-17 14:30 | NUR ---
PT ADMITT PROCESS COMPLETED, PT IS VERY INPULSEIVE AND WILL JUMP UP OUT OF BED, PULLING AT LINES, AND TRIES TO SMOKE THE CALL LIGHT. PT'S FREIND IS SITTING AT THE ROOM AT THIS TIME.
--- NOTE | 2019-01-17 14:46 | NUR ---
PT IS VERY INPULSIVE AND IS PULLING AT LINES AND TUBES. PT WAS PROVIDED WITH A SISTER AT THIS TIME TO KEEP PT SAFE AND LINES INPLACE. PT IS VERY CONFUSED AND UNABLE TO FOLLOW DIRECTIONS AT TIMES.
--- NOTE | 2019-01-17 15:48 | NUR ---
PT UP TO THE BEDSIDE COMMODE BUT UNABLE TO VOID AT THIS TIME.
--- NOTE | 2019-01-17 16:43 | NUR ---
PT REMAINS INPULSIVE AND FREQUENT REQUEST TO UP TO THE BEDSIDE COMMODE. PT CONTIOUES TO HAVE WORD SALAD AND DOES NOT MAKE SENCE WITH WHAT HE IS TALKING ABOUT. PT IS COOPERATIVE WITH TAKING HIS MEDICATIONS, AND FOLLOWING DIRECTIONS AT THIS TIME. CONTIOUES TO PICK AT TUBINGS THEREFORE CIRCUIT COURT CLERK WRAPED HIS IV SITE.
--- NOTE | 2019-01-17 17:07 | NUR ---
PT JOSE MOSQUEDA IS BACK AT THIS TIME. PT IS EATTING DINNER AT THIS TIME.
--- NOTE | 2019-01-17 17:36 | NUR ---
PT CONTIOUES TO BE CONFUSED ABOUT PLACE AND TIME, AND CONTIOUES TO HAVE WORD SALDA WHEN TALKING WITH STAFF. PT JOSE HAS RETURNED AND IS AT THE BEDSIDE AT THIS TIME. PT BACK TO BED SIDE RAILS X 4, BED IN LOWEST POSITION AND CALL LIGHT WITHIN REACH. PT IS ALSO ACROSS FROM THE NURSES STATION.
--- NOTE | 2019-01-17 18:11 | NUR ---
PT IS IN BED AND WATCHING TV AT THIS TIME. SEA REMAINS AT THE BEDSIDE.
--- NOTE | 2019-01-17 18:37 | NUR ---
PT IS COOPERATIVE AT THIS TIME, STAYING IN BED, WATCHING TV. FREIND AT THE BEDSIDE, AND STAFF AT THE NURSES STAION WITH PT IN VIEW. SIDE RAILS X 4
--- NOTE | 2019-01-17 19:14 | EKG ---
[facility] [address] [facility] [place], [place] [address] Signed Sinus tachycardia Otherwise normal ECG When compared with ECG of 18-AUG-2017 11:00, No significant change was found Confirmed by JJ BUCKNER MD ([id number]) on 01/17/2019 7:14:08 PM Electronically Signed By: JJ BUCKNER MD 01/17/19 1914 PATIENT NAME: KACEY GARCIA Electrocardiogram DATE OF : 63 PHYSICIAN: JJ BUCKNER MD REPORT #: [id number] REPORT IS CONFIDENTIAL AND NOT TO BE RELEASED WITHOUT AUTHORIZATION
--- NOTE | 2019-01-17 19:30 | NUR ---
REPORT RECIEVED FROM CCU RN. CARE ASSUMED AT THIS TIME. PT RESTING IN STRETCHER. INSULIN DRIP AND IV FLUIDS INFUSING. CALL LIGHT WITHIN REACH. NO FURTHER NEEDS AT THIS TIME
--- NOTE | 2019-01-17 20:38 | NUR ---
PT GIVEN PM MEDS AND AMBULATED INTO THE BATHROOM. ONE PERSON ASSIST REQUIRED. PT STEADY ON FEET. REPORTS FEELING GENERALIZED WEAKNESS. BACK IN BED, CALL LIGHT WITHIN REACH. BED ALARM ON AT THIS TIME DUE TO PATIENT IMPULSIVENESS.
--- NOTE | 2019-01-17 20:48 | NUR ---
CRITICAL LAB VALUES REPORTED TO DR BUCKNER AT THIS TIME. NO ORDERS RECEIVED.
--- NOTE | 2019-01-17 22:30 | NUR ---
PT UP TO BATHROOM. ASSISTED BY STAPLE CUTTER. STEADY ON FEET. NO FURTHER NEEDS AT THIS TIME.
--- NOTE | 2019-01-17 22:32 | NUR ---
pt was assisted with ambulation back to bed from restroom. He did well. Bed alarm set and pt connected to monitor, bp cuff, and pulse ox.
--- NOTE | 2019-01-18 00:58 | NUR ---
IN ROOM FOR ASSESSMENT. LUNGS SOUND COARSE THROUGHOUT. PT DENIES ANY SHORTNESS OF BREATH, PAIN, OR DISCOMFORT AT THIS TIME. CALL LIGHT WITHIN REACH. BED ALARM ON. NO FURTHER NEEDS AT THIS TIME.
--- NOTE | 2019-01-18 02:00 | NUR ---
PT ASLEEP. BREATHING EVEN AND UNLABOR R= 16. CALL LIGHT AND BELONGINGS WITHIN REACH.
--- NOTE | 2019-01-18 03:42 | NUR ---
IN TO ASSESS PT. STAND BY ASSIST FOR AMBULATING TO BATHROOM. PT STEADY ON FEET. PT USES CALL LIGHT APPROPRAITELY AND IS ORIENTED TO LOCATION AND SELF. REORIENTED PATIENT TO SITUATION AT THIS TIME. CALL LIGHT WITHIN REACH. NO FURTHER NEEDS AT THIS TIME. WILL CONTINUE TO MONITOR
--- NOTE | 2019-01-18 06:11 | NUR ---
PT RESTING WITH EYES CLOSED. BREATHING EVEN AND UNLABORED. CALL LIGHT WITHIN REACH. WILL CONTINUE TO MONITOR.
--- NOTE | 2019-01-18 06:42 | NUR ---
PT APPEARS MORE ALERT AND ORIENTED. CAN RECALL THAT HE IS AT [facility] AND THAT HE HAS BEEN ILL. UP TO BATHROOM WITH STAND BY ASSIST STEADY ON FEET. BACK IN BED. CALL LIGHT WITHIN REACH. NO FURTHER NEEDS AT THIS TIME.
--- NOTE | 2019-01-18 11:40 | NUR ---
SPOKE WITH PATIENT IN ROOM. PATIENT REPEATS SELF AND IS UNABLE TO ANSWER QUESTIONS AT THIS TIME. NO FAMILY PRESENT. WILL CHECK BACK ANOTHER TIME.
--- NOTE | 2019-01-18 13:05 | NUR ---
PT LAYING IN BED WITH FRIEND MAL AT . HE MENTIONED THAT HE THINKS HE IS MOVING TO [place] LATER TODAY. ENCOURAGED PT TO KEEP WORKING HARD, TAKING ONE DAY AT A TIME. PT REQUESTED PRAYER, WILL CONTINUE TO FOLOW NEEDED
--- NOTE | 2019-01-18 13:34 | NUR ---
REPORT RECEIVED FROM CCU NURSE.
--- NOTE | 2019-01-18 13:50 | NUR ---
FULL REPORT GIVEN TO DENISA BENÍTEZ. ALL QUESTIONS ANSWERED.
--- NOTE | 2019-01-18 14:10 | NUR ---
PT TRANSPORTED TO ROOM 122 ON MED/SURG FLOOR VIA THE BED. ALL PT BELONGINGS INCLUDING KIT MEDS WENT WITH PT. PT HAS FRIEND AT THE BEDSIDE.
--- NOTE | 2019-01-18 14:15 | NUR ---
PATIENT ARRIVED TO MED SURG.
--- NOTE | 2019-01-18 14:22 | NUR ---
PATIENT IN SHOWER.
--- NOTE | 2019-01-18 15:00 | NUR ---
PT ARRIVED TO FLOOR. VITALS STABLE. WATER REFRESHED. ORIENTED TO ROOM. BED ALARM PLACED FOR SAFETY.
--- NOTE | 2019-01-18 17:00 | NUR ---
ENEMA ADMINISTERED. PT TOLERATED WELL. MED LIQUID BM. PT REPORTS STILL FEELING BLOATED. PT OUT TO AMBULATE RAYMUNDO WITH FRIEND AAT SIDE.
--- NOTE | 2019-01-18 19:21 | NUR ---
PATIENT CAME OVER FROM CCU THIS AFTERNOON. PATIENT TOOK A SHOWER WITH HELP FROM HIS FRIEND MAL. SHE ALSO WALKED HIM 2 LAPS AROUND MED SURG TODAY.
--- NOTE | 2019-01-18 20:34 | NUR ---
PATIENT RESTING QUIETLY IN BED AFTER USING THE BATHROOM VISITING WITH HIS FRIEND PANDA, GIVEN FRESH ICE WATER. NO OTHER NEEDS AT THIS TIME. CALL LIGHT IN REACH AND BED ALARM ON.
--- NOTE | 2019-01-18 22:14 | NUR ---
PATIENT GOT UP AND WALKED TO THE BATHROOM WITH 1PSBA AND THEN BACK TO BED AFTER HE VOIDED. PATIENT HAD NO OTHER NEEDS. BED ALARM ON. PATIENT MISSED THE HAT WHEN HE VOIDED.
--- NOTE | 2019-01-18 23:21 | NUR ---
PATIENT RESTINGG QUIETLY SUPINE IN LOW FOWLERS POSITION WITH EYES CLOSED AND EVENA AND REGULAR RESPIRATIONS. CALL LIGHT IN REACH AND BED ALARM ON.
--- NOTE | 2019-01-19 01:34 | NUR ---
PATIENT RESTING QUIETLY, SUPINE, EYES CLOSED, RESPIRATIONS REGULAR AND EVEN, CALL LIGHT IN REACH.
--- NOTE | 2019-01-19 03:09 | NUR ---
PATIENT CONTINUES TO REST SUPINE WITH EYES CLOSED AND REGULAR UNLABORED RESPIRATIONS. CALL LIGHT IN REACH.
--- NOTE | 2019-01-19 04:24 | NUR ---
PATIENT REMAINS CONFUSED AND HAS A REALLY HARD TIME COMMUNICATING AND REMEMBERING AND NEEDS TO BE REORIENTED OFTEN. PATIENT HAS HAD THE BED ALARM ON ALL NIGHT AND HAS SLEPT A FAIR AMOUNT, BUT CANNOT REMEMBER TO USE THE CALL LIGHT WHEN HE NEEDS TO USE THE REST ROM SO THE BED ALARM HAS LET US KNOW EACH TIME HE HAS TRIED TO GET UP TO THE RESTROOM. DENIES ANY PAIN. CURRENTLY RESTING WITH EYES CLOSED AND EQUAL AND REGULAR UNLABORED RESPIRATIONS.
--- NOTE | 2019-01-19 06:34 | NUR ---
PT CALLED TO USE THE RESTROOM, SBA TO RESTROOM ABD BACK TO BED.
--- NOTE | 2019-01-19 07:15 | NUR ---
REPORT RECIEVED BY RN. PATIENT UP TO TOILET WITH 1 PERSON SBA, VOIDING WELL. BREAKFAST DELIVERED, PATIENT TO CHAIR WITH BED ALARM ON. NO FURTHER NEEDS AT THIS TIME, CALL LIGHT WITHIN REACH.
--- NOTE | 2019-01-19 09:18 | NUR ---
PT ATE 70% OF BREAKFAST. PREPARED HIM FOR SHOWER. SEEMED CONFUSED TO WHAT TO DO. COVERED IV, SBA WHILE IN RESTROOM. TRANSFERRED TO CHAIR, REMOVED IV COVERAGE. CALL LIGHT IN REACH.
--- NOTE | 2019-01-19 09:39 | NUR ---
PATIENT SITTING UP IN CHAIR WITH VISITOR IN ROOM. CHAIR ALARM ON. ASSESSMENT COMPLETE. NO FURTHER NEEDS AT THIS TIME, CALL LIGHT WITHIN REACH.
[2019-01-19] MEDS ORDERED: NICOTINE PATCH1 EAC1 TD (10:16)
[2019-01-19] MEDS ORDERED: LEVOFLOXACIN500 MG PO (10:16)
--- NOTE | 2019-01-19 10:19 | NUR ---
DR. BUCKNER IN ROOM TO DISCUSS POC WITH PATIENT. AM MEDICATIONS GIVEN. VISITOR IN ROOM WITH PATIENT, DENIES ANY NEEDS AT THIS TIME. CALL LIGHT WITHIN REACH.
--- NOTE | 2019-01-19 11:25 | NUR ---
PT WAS ABLE TO WALK 3 LAPS, 780 FT, WITH SBA.
--- NOTE | 2019-01-19 11:30 | NUR ---
SPOKE AT LENGTH WITH PATIENT AND FRIEND MAL ANDERSON. MAL STATES THAT PATIENT FORGETS TO EAT AND CARE FOR HIMSELF. SHE STATES HIS LANDLADY IS SAYING HE IS SMOKING IN THE APARTMENT AND SHE HAS STATED IF HE DOESN'T STOP THEY WILL EVICT HIM. HE HAS ALREADY ACCRUED A WARNING AND THE NEXT NOTICE WILL BE A 10 DAYS TO EVICTION NOTICE. KACEY STATES HE DOESN'T WANT TO SMOKE IN THE DESIGNATED AREA BECAUSE OTHER PEOPLE ARE THERE AND HE HAS ANXIETY AROUND OTHERS. HE STATES HE FORGETS HE CAN'T SMOKE INSIDE. MAL STATES SHE BOUGHT HIM NO SMOKING SIGNS. SHE TAKES HIS SMOKING STUFF TO HIS CAR SO HE CAN GO OUT THERE BUT THEN HE FORGETS AND TAKES IT BACK INSIDE. 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 WE DISCUSSED HE MAY NEED IN-HOME CARE. WE DISCUSSED THAT HE CAN REQUEST AN ASSESSMENT THROUGH [facility]. KACEY STATES HE GETS ABOUT $850/MONTH IN INCOME. HE DOES NOT WORK. WE DISCUSSED THAT HE WOULD BE HOMELESS IF EVICTED. MAL HAS ALREADY SPOKEN WITH HIM THAT HE CANNOT LIVE WITH HER AND HE HAS NO OTHER SUPPORT SYSTEM. WE DISCCUSED HOW HARD IT IS TO GET INTO LOW INCOME HOUSING IF HE GETS EVICTED FROM THIS ONE. I GAVE THEM THE INFORMATION TO CONTACT [facility] TO REQUEST AN EVALUATION. I TOLD THEM I WILL CALL [facility] AND REQUEST FOR HIM, BUT THEY WILL HAVE TO CALL HIM TO SPEAK DIRECTLY WITH HIM. HE IS OK WITH THIS.
--- NOTE | 2019-01-19 12:13 | NUR ---
PT WAS IN BED WHEN ARRIVED. TRANSFERRED TO CHAIR WHEN BREAKFAST ARRIVED. DID NOT HAVE MUCH APPETITE. TOOK ALL MEDS DIRECTED. WAS ABLE TO HAVE A SHOWER, WITH VERBAL CUES HE WAS VERY CONFUSED MOST OF THE TIME. PT WAS ABLE TO WALK THREE LAPS AROUND THE HALLWAY WITH SBA. WHEN SPEAKING, HE SEEMED TO HAVE MORE CLARITY ABOUT HIS PERSONAL LIFE WHEN BEING ASKED A QUESTION. CALL LIGHT IN REACH. DISCHARGE PAPERS WERE GIVEN. WAITNG FOR ANTIBIOTICS TO COMPLETE TO REMOVE IV.
--- NOTE | 2019-01-19 12:25 | NUR ---
SPOKE WITH ARMANDO AT [facility]. SHE STATES PATIENT DID HAVE SOME SERVICES REQUESTED LAST YEAR, BUT NOTHING SINCE THAT. DISCUSSED HIS NEEDS. SHE STATES SHE WILL PLACE A REQUEST IN AND CONTACT HIM DIRECTLY. HIS PHONE NUMBER WAS GIVEN.
--- NOTE | 2019-01-19 13:07 | NUR ---
DISHCARGE INFORMATION GIVEN, ALL QUESTIONS AND CONCERNS ANSWERED. PERSONAL BELONGINGS COLLECTED. PATIENT LEAVES UNIT AMBULATORY WITH FRIEND AND NURSING STAFF.
== END 2019-01-19 12:50 | disposition home or self-care (01) | DRG 871 ==
LOC: ED 09:16 → CCU 11:45 → MS 01-18 14:05
PROVIDERS: ADMIT Internal Medicine
DX: A40.3 Sepsis due to Streptococcus pneumoniae (principal); J13 Pneumonia due to Streptococcus pneumoniae; J96.01 Acute respiratory failure with hypoxia; G93.41 Metabolic encephalopathy; F17.210 Nicotine dependence, cigarettes, uncomplicated; S06.890S Other specified intracranial injury without loss of consciousness, sequela; G93.89 Other specified disorders of brain; E83.42 Hypomagnesemia; E83.39 Other disorders of phosphorus metabolism; F39 Unspecified mood [affective] disorder; F41.9 Anxiety disorder, unspecified; Z79.899 Other long term (current) drug therapy; Z88.8 Allergy status to other drugs, medicaments and biological substances; Z88.1 Allergy status to other antibiotic agents
CPT/HCPCS: 36415; 51701; 70450; 71045; 80053; 81001; 83605; 83735; 84100; 85025; 87449; 87899; 93005; 93010; 94640; 94760; 99285-25; 99406; J0696; J1650; J1956; J3475; J7030; J7060; J7120

== ENCOUNTER 2019-04-25 12:14 | Emergency (ER) | payer MEDICARE, OTHER ==
[~2019-04-25] VITALS: Ht 172.7 cm; Wt 85.3 kg
[~2019-04-25 12:14] MED LIST changes: +LEVOFLOXACIN500 MG PO; +NICOTINE PATCH1 EAC1 TD; +TESTOSTERO200 MG/1 M IM
--- OUTSIDE RECORDS SUMMARY | 2019-04-25 12:18 | XMS ---
PreManage Notification: KACEY GARCIA Security Trailer Sections Assembler Events No recent Security Events currently on file CRITERIA MET - [facility] C[facility] PROVIDERS DENISA MALAGON Physician Engraver Wood 11/23/2018-Current RUCHI PHONE: Unknown Francheska Aguayo Copy Lathe Tender/Customs Broker 03/04/2019-Current PHONE: [phone] [place] CARMEN [facility] Current PHONE: Unknown Francheska Aguayo Primary Care 03/04/2019-Current PHONE: [phone] CHANI THEODORE Primary Care Current PHONE: Unknown Chani Theodore Current PHONE: Unknown [facility] Primary Care Current PHONE: Unknown RADHA CARMEN Primary Care 02/06/2013-Current PHONE: Unknown Igor has no Care Guidelines for this patient. E.D. VISIT COUNT (12 MO.) 3 TRIP [facility] TOTAL 3 NOTE: Visits indicate total known visits. ED/UCC VISIT TRACKING (12 MO.) 04/25/2019 12:15 [facility] TYPE: Emergency COMPLAINT: - ANXIETY 01/17/2019 09:17 [facility] TYPE: Emergency COMPLAINT: - MENTAL STATUS CHANGE 11/22/2018 11:37 [facility] TYPE: Emergency COMPLAINT: - ABDOMINAL PAIN DIAGNOSES: - Nicotine dependence, unspecified, uncomplicated - Allergy status to other antibiotic agents status - Left upper quadrant pain - Other dental officer (current) drug therapy - Constipation, unspecified - Allergy status to oth drug/meds/biol subst status INPATIENT VISIT TRACKING (12 MO.) 01/17/2019 11:45 [facility] TYPE: Medical Surgical COMPLAINT: - SEPSIS/ PNEUMONIA DIAGNOSES: - Allergy status to oth drug/meds/biol subst status - Other dental officer (current) drug therapy - Altered mental status, unspecified - Hypomagnesemia - Other specified disorders of brain - Allergy status to other antibiotic agents status - Nicotine dependence, cigarettes, uncomplicated - Unspecified mood [affective] disorder - Sepsis due to Streptococcus pneumoniae Sepsis du - Metabolic encephalopathy - Acute respiratory failure with hypoxia - Other disorders of phosphorus metabolism - Anxiety disorder, unspecified - Oth intracranial injury w/o loss of consciousness, sequela - Pneumonia due to Streptococcus pneumoniae [email or web address]
--- NOTE | 2019-04-26 07:28 | EKG ---
[facility] [address] [facility] [place], [place] [address] Signed Sinus tachycardia Otherwise normal ECG When compared with ECG of 17-JAN-2019 10:10, No significant change was found Confirmed by AGUSTO JAFFE MD ([id number]) on 04/26/2019 7:28:05 AM Electronically Signed By: AGUSTO JAFFE MD 04/26/19 0728 PATIENT NAME: KACEY GARCIA Electrocardiogram DATE OF : 63 PHYSICIAN: AGUSTO JAFFE MD REPORT #: [id number] REPORT IS CONFIDENTIAL AND NOT TO BE RELEASED WITHOUT AUTHORIZATION
== END 2019-04-25 15:26 | disposition home or self-care (01) ==
LOC: ED 12:14
DX: F41.9 Anxiety disorder, unspecified (principal); F17.200 Nicotine dependence, unspecified, uncomplicated; Z88.1 Allergy status to other antibiotic agents; Z88.8 Allergy status to other drugs, medicaments and biological substances; Z79.899 Other long term (current) drug therapy
CPT/HCPCS: 71045; 71260; 80053; 83880; 84484; 85025; 85379; 93005; 93010; 99284-25; J7030; Q9967

== ENCOUNTER 2021-01-02 14:27 | Emergency (ER) | payer MEDICARE, OTHER ==
[~2021-01-02] VITALS: Ht 172.7 cm; Wt 85.3 kg
--- OUTSIDE RECORDS SUMMARY | 2021-01-02 14:28 | XMS ---
PreManage Notification: KACEY GARCIA Security Operating Room Registered Nurse Events No recent Security Events currently on file CRITERIA MET - [facility] PROVID[facility] DENISA MALAGON Physician Management Accounts Manager 11/23/2018-Current PHONE: Unknown Julio Watson Rug Touch Up Painter/Snuff Box Finisher 11/02/2020-Current PHONE: [phone] SD CARMEN [facility] Current PHONE: [phone] Igor has no Care Guidelines for this patient. E.D. VISIT COUNT (12 MO.) 1 TRIP [facility] TOTAL 1 NOTE: Visits indicate total known visits. ED/UCC VISIT TRACKING (12 MO.) 01/02/2021 14:27 [facility] TYPE: Emergency COMPLAINT: - WEAKNESS INPATIENT VISIT TRACKING (12 MO.) No inpatient visits to display in this time frame [email or web address]
[2021-01-02] MEDS ORDERED: OMEPRAZOLE20 MG PO (17:15)
--- NOTE | 2021-01-02 22:04 | EKG ---
[facility] [address] [facility] [place] [address] Signed Normal sinus rhythm Normal ECG When compared with ECG of 25-APR-2019 12:49, T wave inversion no longer evident in Inferior leads Confirmed by AGUSTO JAFFE MD ([id number]) on 01/02/2021 10:04:23 PM Electronically Signed By: AGUSTO JAFFE MD 01/02/212203 PATIENT NAME: KACEY GARCIA Electrocardiogram DATE OF : 63 PHYSICIAN: AGUSTO JAFFE MD REPORT #: [id number] REPORT IS CONFIDENTIAL AND NOT TO BE RELEASED WITHOUT AUTHORIZATION
== END 2021-01-02 18:03 | disposition home or self-care (01) ==
LOC: ED 14:27
DX: K29.00 Acute gastritis without bleeding (principal); I10 Essential (primary) hypertension; F17.200 Nicotine dependence, unspecified, uncomplicated; Z88.1 Allergy status to other antibiotic agents; Z88.8 Allergy status to other drugs, medicaments and biological substances; Z79.899 Other long term (current) drug therapy
CPT/HCPCS: 71045; 80053; 83735; 84484; 85025; 93005; 93010; 96360; 99285-25; J7030

== ENCOUNTER 2021-11-17 09:56 | Day surgery (SDC) | payer MEDICARE, OTHER ==
[~2021-11-17] VITALS: Ht 165.1 cm; Wt 87.7 kg
[~2021-11-17 09:56] MED LIST changes: +HYDRALAZINE HCL25 MG PO; +OMEPRAZOLE20 MG PO
[2021-11-17] MEDS ORDERED: PANTOPRAZOLE SO40 MG PO (11:04)
[2021-11-17] MEDS ORDERED: DEPAKOTE500 MG PO (11:05)
[2021-11-17] MEDS ORDERED: NEURONTIN300 MG PO (11:05)
[2021-11-17] MEDS ORDERED: WELLBUTRIN XL300 MG PO (11:06)
[2021-11-17] MEDS ORDERED: METOPROLOL SUCC25 MG PO (11:06)
[2021-11-17] MEDS ORDERED: VITAMIN D350 MCG PO (11:06)
--- NOTE | 2021-11-17 11:14 | NUR ---
THIS RN TO ROOM TO ASSIST WITH IV START. IV STARTED PER PROTOCOL. BRISK BLOOD RETURN NOTED. IV FLUIDS STARTED, SEE MAR. NO ADDITIONAL NEEDS AT THIS TIME. CALL LIGHT WITHIN REACH. BED RAILS UP.
--- NOTE | 2021-11-17 14:03 | NUR ---
11/17/21 1403 Samuel Villafuerte STEADY ON FEET WITH TWO PERSON STAND BY ASSIST FOR AMBULATION TO BR FOR UNMEASURED VOID. DENIES NUASEA OR PAIN. PT DECLINES SIPS OF WATER ATTHIS POINT. REVIEWED DISCHAGRE INSTRUCTIONS WITH PATIENT AND FRIEND AT BEDSIDE. COPY OF MD NOTES GIVE TO PT WITH DISCHARGE INSTRUCTIONS.
--- NOTE | 2021-11-18 10:14 | PATH ---
[facility] [address] [place], [place] [address] Signed SPECIMEN(S): A RECTAL BIOPSY SPECIMEN SOURCE: A. RECTAL BIOPSY CLINICAL HISTORY: Rectal bleeding, mild proctitis, internal hemorrhoids. FINAL PATHOLOGIC DIAGNOSIS: Rectal biopsy: - Hyperplastic polyp (two fragments). JVR:[facility]:C2NR MICROSCOPIC EXAMINATION: Histologic sections of all submitted blocks are examined by light microscopy. These findings, together with the gross examination, support the pathologic diagnosis. GROSS DESCRIPTION: The specimen, labeled "JS, 1," and designated on the requisition "rectum biopsy," is received in formalin and consists of 2 fragments of pink-herron tissue (0.3 cm in greatest dimension). The specimen is submitted entirely in cassette A1. AC (under the direct supervision of a pathologist) The Gross Description was prepared using a voice recognition system. The report was reviewed for accuracy; however, sound-alike word errors, addition and/or deletions may occur. If there is any question about this report, please contact Client Services. PERFORMING LABORATORY: The technical component was performed by [facility], [address] [place] [id number] (CLIA# [id number]). Professional interpretation was performed by [employer] [facility] - [facility], [address] [place] [id number] (CLIA#: [id number]). Diagnostician: Hugo Keene MD Pathologist Electronically Signed 11/18/2021 Copies: PATIENT NAME: KACEY GARCIA PATHOLOGY DATE OF : 63 REPORT #: [id number] PHYSICIAN: [facility]Y PATHOLOGY PCP: DENISA MALAGON PAC REPORT IS CONFIDENTIAL AND NOT TO BE RELEASED WITHOUT AUTHORIZATION [address] [address] Signed ~ PATIENT NAME: KACEY GARCIA PATHOLOGY DATE OF : 63 REPORT #: [id number] PHYSICIAN: KELSEY PATHOLOGY PCP: DENISA MALAGON PAC REPORT IS CONFIDENTIAL AND NOT TO BE RELEASED WITHOUT AUTHORIZATION
--- NOTE | 2021-11-18 13:04 | OR ---
[facility] [address] [place], [place] [address] Signed DATE OF OPERATION: 11/17/2021 SURGEON: Jolanta Mcdaniel MD PREOPERATIVE DIAGNOSES: 1. Transgender male. 2. Rectal bleeding. POSTOPERATIVE DIAGNOSES: 1. Mild proctitis. 2. Internal hemorrhoids. PROCEDURE: Total colonoscopy to cecum with biopsy of rectum. ANESTHESIA: Intravenous sedation, propofol infusion; Vera Ortiz CRNA INDICATIONS: This 56-year-old transgender white man is a patient of HASMUKH Leija. He is known to me from the past. He has had complaints of rectal bleeding and long-standing diarrhea. He has suffered traumatic brain injury and is not fully his previous self cognitively, but he is a reasonably reliable historian. He does have history of gastric ulcer and takes omeprazole daily and has recently started Carafate. He is admitted at this time to undergo colonoscopy to better characterize the issue of rectal bleeding. The risks of bleeding, infection, and perforation were reviewed with him and his regulatory affairs assistant, Obdulio Cabrera RN and they understand and wished to proceed. FINDINGS: The prep was excellent. Complete colonoscopy was undertaken to the cecum without question. He had no findings of polyps or diverticulosis, but did have mild proctitis and some internal hemorrhoids. Gynecologic pelvic exam was not undertaken. DESCRIPTION OF PROCEDURE: The patient was brought to the endoscopy suite and placed in lateral decubitus position given intravenous sedation to a point of slurred speech and nystagmus with full cardiopulmonary monitoring by the rod piler with propofol infusional technique. Digital rectal examination showed external hemorrhoidal changes. An Olympus video colonoscope was passed into the rectum and manipulated throughout the Electronically Signed By: JOLANTA MCDANIEL MD 11/18/21 1304 PATIENT NAME: KACEY GARCIA OPERATIVE REPORT DATE OF : 63 REPORT #: [id number] PHYSICIAN: JOLANTA MCDANIEL MD PCP: DENISA MALAGON PAC REPORT IS CONFIDENTIAL AND NOT TO BE RELEASED WITHOUT AUTHORIZATION [facility] [address] [place] [address] Signed colon ultimately intubating the cecum, ileocecal valve and appendiceal orifice were normal. Scope was withdrawn. Examination throughout showed no sign of abnormality until the rectum and there was mild distal proctitis. Biopsies were obtained. Retroflexed view confirmed internal hemorrhoidal changes in addition to those external hemorrhoidal changes noted previously. The scope was removed, and the patient was taken to the recovery room in good condition. CONCLUDING DIAGNOSIS: Rectal bleeding most likely related to internal hemorrhoids, less likely is the mild proctitis the culprit. We will review his pathology reports. We would recommend Metamucil or Citrucel one scoop p.o. daily. If persistent bleeding is noted, consideration might be made for anoscopy with hemorrhoidal banding in the office setting. MD TORY Jesus/JAJA /[id number] cc: HASMUKH Leija Copies: ~ Electronically Signed By: JOLANTA MCDANIEL MD 11/18/21 3476 PATIENT NAME: RADHAKACEY MADISON OPERATIVE REPORT DATE OF : 63 REPORT #: [id number] PHYSICIAN: JOLANTA MCDANIEL MD PCP: DENISA MALAGON PAC REPORT IS CONFIDENTIAL AND NOT TO BE RELEASED WITHOUT AUTHORIZATION
== END 2021-11-17 13:53 | disposition home or self-care (01) ==
LOC: DS 09:56 → OPS 09:56
PROVIDERS: ATTEND Surgery
PROC: 0DBP8ZX Excision of Rectum, Via Natural or Artificial Opening Endoscopic, Diagnostic (ICD-10-PCS; principal; 2021-11-17 11:00)
DX: K64.8 Other hemorrhoids (principal); K62.89 Other specified diseases of anus and rectum; K64.4 Residual hemorrhoidal skin tags; K62.1 Rectal polyp; I10 Essential (primary) hypertension; K58.9 Irritable bowel syndrome, unspecified; Z87.820 Personal history of traumatic brain injury; Z88.8 Allergy status to other drugs, medicaments and biological substances; Z88.1 Allergy status to other antibiotic agents
CPT/HCPCS: J2001; J2704; J7121

== ENCOUNTER 2022-06-01 08:22 | Day surgery (SDC) | payer MEDICARE, OTHER ==
[~2022-06-01] VITALS: Ht 165.1 cm; Wt 75.0 kg
[~2022-06-01 08:22] MED LIST changes: +BUPRENORPHINE HC2 MG SL; +BUSPIRONE HCL5 MG PO; +DEPAKOTE500 MG PO; +METOPROLOL SUCC25 MG PO; +PANTOPRAZOLE SO40 MG PO; +PROZAC20 MG PO; +VITAMIN D350 MCG PO; +WELLBUTRIN XL300 MG PO
--- NOTE | 2022-06-01 11:04 | NUR ---
06/01/22 1104 Anny Carlos 1102 PATIENT ARRIVES TO PACU UNRESPONSIVE TO PAIN. ORAL AIRWAY IN PLACE. RESP EVEN AND UNLABORED WITH INTERVENTION, MASK AT 6 LITERS.
--- NOTE | 2022-06-01 12:37 | NUR ---
1130 PT BACK TO FROM PACU ALERT AND AWAKE, HAD PT RINSE OUT MOUTH WITH WATER, HE HAD SMALL AMOUT OF BLOOD ON TIP OF TONGUE, NO ACTIVE BLEEDING NOTED. PT COMPLAINS OF PAIN 5/10 GRIMMISING AND VERY ANXIOUS. CALLED AND UPDATED ON PTS CONDITIONS HE ORDERED NORCO 5/325. JELLO AND APPLE SAUCE GIVEN TO PT WITH PAIN PILL. PT TOLERATED WELL.
--- NOTE | 2022-06-01 12:49 | NUR ---
PT REPORTS 6-10/11 REPORTS GETTING WORSE NOT BETTER. PT UP TO BATHROOM AMBULATES WITHOUT ASSIST. ANOTHER NORCO GIVEN
--- NOTE | 2022-06-01 13:14 | NUR ---
1300 PT EATING APPLE SAUCE TOLERATES WELL,SMALL AMOUT OF BLEEDING NOTED COMING FROM THE END OF STITCH LINE ON TONGUE. PT SPIT OUT BLOOD CLOT. CALLED DR TO UPDATE HIM ON PT CONDITION. DR REPORTS SMALL AMOUT OF BLEEDING IS EXPECTED AND SHOULD STOP AND NO ACTION IS NEEDED AT THIS TIME.
--- NOTE | 2022-06-01 14:13 | NUR ---
8634 PT REPORTS PAIN IS BETTER, BLEEDING HAS LESSENED, PT STATES READINESS TO GO HOME. DISCHARGE INSTRUCTIONS GIVEN TO PT AND HIS FRIEND BOTH VOICED UNDERSTANDING.
--- NOTE | 2022-06-08 09:30 | OR ---
[facility] [address] [place], [place] [address] Signed DATE OF OPERATION: 06/01/2022 SURGEON: Vipul Randolph MD PREOPERATIVE DIAGNOSIS: Right lingual lesion. POSTOPERATIVE DIAGNOSIS: Right lingual lesion. PROCEDURE: Excision of right lingual lesion. ANESTHESIA: General, LMA; CUSTOMER ADVISOR, Pedrito PREOP HISTORY: Sajan is a 56-year-old male with a lesion on the edge of his right side of his tongue. He feels like this was a traumatic lesion and has not healed, it has been there for several months and continues to be sore, slightly depressed lesion on exam and he is taken to the operating for excision. OPERATIVE PROCEDURE AND FINDINGS: After informed consent, the patient was taken to the operating room, placed in supine position, where general LMA anesthesia was induced. Patient and procedure were verified. The patient was repositioned. Headlight exam of the oral cavity showed the tongue lesion on the right edge near the anterior tip. It was about a centimeter depressed sclerotic lesion. The lesion and surrounding mucosa was injected with 1% lidocaine with epi. A 2-3 mL used and excision was then performed. A towel clip placed in the anterior tongue for retraction. The excision was elliptical along the edge of the tongue about 2-3 mm margins, total of about 2 cm in length, deep excision down to through submucosa. The specimen was sent to pathology for permanent sections. Bleeding was minimal stopped afterwards with needle point cautery. The wound was then closed with 4-0 interrupted Vicryl. Excellent cosmetic closure. Hemostasis verified. Oral cavity and pharynx suctioned clear of blood and secretions. The patient was then awakened, extubated, and transported to recovery room in good condition. No complications. BLOOD LOSS: Minimal. Electronically Signed By: VIPUL RANDOLPH MD 06/08/22 0930 PATIENT NAME: SAJAN GARCIA OPERATIVE REPORT DATE OF : 63 REPORT #: [id number] PHYSICIAN: VIPUL RANDOLPH MD PCP: DENISA MALAGON PAC REPORT IS CONFIDENTIAL AND NOT TO BE RELEASED WITHOUT AUTHORIZATION [address] [place], [place] [address] Signed SPECIMEN: . DRAINS: No drains. Vipul Randolph MD GC/JAJA /[id number] Copies: ~ Electronically Signed By: VIPUL RANDOLPH MD 06/08/22 0930 PATIENT NAME: SAJAN GARCIA OPERATIVE REPORT DATE OF : 63 REPORT #: [id number] PHYSICIAN: VIPUL RANDOLPH MD PCP: DENISA MALAGON PAC REPORT IS CONFIDENTIAL AND NOT TO BE RELEASED WITHOUT AUTHORIZATION
--- NOTE | 2022-06-10 10:54 | PATH ---
[facility] [address] [facility] [place], [place] [address] Signed SPECIMEN(S): A RIGHT TONGUE BIOPSY SPECIMEN SOURCE: A. RIGHT TONGUE BIOPSY CLINICAL HISTORY: Pre/post: Right lingual lesion. FINAL PATHOLOGIC DIAGNOSIS: Right tongue biopsy: - Squamous acanthosis and hyperparakeratosis with focal mild cellular atypia. (See comment). - Negative for evidence of malignancy. COMMENT: The observed histologic features are non-specific, but overall appear reactive in nature, consistent with reactive/frictional keratosis. No overt evidence of a neoplastic process is identified within the sampled tissue on multiple levels reviewed. Correlation with the clinical history and presentation of the lesion is recommended. If concern for malignancy exists/remains, rebiopsy may be warranted. This case was reviewed in consultation with Zamzam Moore DDS, MS, Board Certified Oral and Maxillofacial Pathologist. AVERY:EVY:justin:C2NR MICROSCOPIC EXAMINATION: Histologic sections of all submitted blocks are examined by light microscopy. These findings, together with the gross examination, support the pathologic diagnosis. GROSS DESCRIPTION: The specimen, labeled and designated "Strong, right tongue biopsy," is received in formalin and consists of one pink-herron soft tissue fragment that is irregular shaped and measures 1.0 x 0.7 x 0.5 cm. Specimen is inked and sectioned. Entirely submitted in (A1). JS (under the direct supervision of a pathologist) The Gross Description was prepared using a voice recognition system. The report was reviewed for accuracy; however, sound-alike word errors, addition and/or deletions may occur. If there is any question about this report, please contact Client Services. PATIENT NAME: KACEY GARCIA PATHOLOGY DATE OF : 63 REPORT #: [id number] PHYSICIAN: KELSEY PATHOLOGY PCP: DENISA MALAGON PAC REPORT IS CONFIDENTIAL AND NOT TO BE RELEASED WITHOUT AUTHORIZATION [facility] [address] [facility], [place] [address] Signed PERFORMING LABORATORY: The technical component was performed by [facility], [address] [place] [address] (CLIA# [id number]). Professional interpretation was performed by [facility], [address] [place] [id number] (CLIA#: [id number]). Diagnostician: Hugo Keene MD Pathologist Diagnostician: Alok Andrade MD Pathologist Electronically Signed 06/10/2022 Copies: ~ PATIENT NAME: KACEY GARCIA PATHOLOGY DATE OF : 63 REPORT #: [id number] PHYSICIAN: KELSEY TREVINO PCP: DENISA MALAGON PAC REPORT IS CONFIDENTIAL AND NOT TO BE RELEASED WITHOUT AUTHORIZATION
== END 2022-06-01 14:00 | disposition home or self-care (01) ==
LOC: DS 08:22
PROVIDERS: ATTEND Otolaryngology
PROC: 0CB7XZZ Excision of Tongue, External Approach (ICD-10-PCS; principal; 2022-06-01 11:30)
DX: K14.3 Hypertrophy of tongue papillae (principal); R23.4 Changes in skin texture; I10 Essential (primary) hypertension; Z79.899 Other long term (current) drug therapy; Z88.8 Allergy status to other drugs, medicaments and biological substances; Z88.1 Allergy status to other antibiotic agents; Z87.891 Personal history of nicotine dependence
CPT/HCPCS: 00170; 88305; J1100; J2250; J2405; J2704; J3010; J7121